=== PATIENT | male | born 1975 | race Caucasian/White ===

== ENCOUNTER 2020-10-18 09:45 | Inpatient (IN) | payer BC, SELFPAY ==
[2020-10-18] VITALS (9 sets, daily range): BP systolic 110–149; BP diastolic 68–96; PULSE 80–117; RESP 18–38; TEMP 37.1–39.2; O2SAT 2–97; BMI 31.0; BMI 30.8
--- NOTE | 2020-10-18 10:02 | EKG12_ITS ---
Test Reason : Blood Pressure : / mmHG Vent. Rate : 107 BPM Atrial Rate : 107 BPM P-R Int : 154 ms QRS Dur : 082 ms QT Int : 326 ms P-R-T Axes : 038 038 071 degrees QTc Int : 435 ms Sinus tachycardia Nonspecific T wave abnormality Abnormal ECG Confirmed by XOCHILT ARREDONDO, MARIBEL ([id number]), video editor BURTON ALBERTS ([id number]) on 10/19/2020 1:38:03 PM Referred By: Confirmed By:MARIBEL LEMON MD
--- NOTE | 2020-10-18 10:03 | CT_ITS ---
STUDY: CTA CHEST REASON FOR EXAM: Male, 45 years old. SOB,COUGH,FEVER,WEAKNESS,AND BODY ACHES. RADIATION DOSAGE (If Supplied By Facility): CTDIvol = ( 12.64 ) mGy, DLP = ( 553.86 ) mGycm TECHNIQUE: The examination was performed with the intravenous administration of IV 100mL Isovue-370. Post-processing of the angiographic images was performed, with multiplanar reformation and 3D reconstruction. Individualized dose optimization techniques were used for this CT. COMPARISON: None. FINDINGS: There is limited enhancement of the main pulmonary artery and right and left pulmonary arteries. There is limited enhancement of the bilateral peripheral pulmonary arteries. There is no demonstrated pulmonary embolism however, because the contrast bolus is not optimal, subtle filling defect could be present and overlooked, particularly in the distal vessels.. Normal thoracic aorta and visualized great vessels. There is no demonstrated aortic dissection. Sternal cerclage wires and vascular clips are present from a prior sternotomy and coronary artery bypass graft procedure (CABG). Normal mediastinum. Normal hilar regions. There is peribronchial thickening. Lungs are underexpanded There is interstitial and airspace opacifications predominantly in the inferior lung mora. This pattern of opacification can be seen with Covid pneumonia, but also with CHF for multifocal pneumonitis. Normal pleura. Normal chest wall structures. Normal osseous structures. Normal visualized upper abdomen. CT/CTA Chest W/WO Contrast IMPRESSION: No demonstrated PE, or thoracic aortic aneurysm or dissection. However, the contrast bolus within the pulmonary arteries is not optimal, and a subtle defect could be present and overlooked particularly in the distal vessels Interstitial and airspace opacifications predominantly in the inferior halves of both lung mora, differential as described above. Follow-up recommended to ensure resolution Chronic bronchitis Remote CABG Electronically Signed: Everett Echavarria MD at 11:55 EST , Service support ,
--- NOTE | 2020-10-18 10:25 | ED.DCSUM_ITS ---
History of Present Illness Chief Complaint: Shortness of Breath Informant: Patient Narrative: This is a 45-year-old male presenting with shortness of breath. Patient states that his had Covid and he developed symptoms approximately 10 days ago. He states it started off with a cough and then progressed to fever headache diarrhea. He states that he started to feel okay but then went for a walk outside which caused him shortness of breath that has yet to resolve. He has been according to the notes that his sent with him on hydroxychloroquine, prednisone, azithromycin, and beginning last night doxycycline. He is unsure of who was prescribing these medications. He is also been using a albuterol aerosol machine at home. notes that his pulse ox was into the 80s today. He states he has been eating and drinking okay. - Past Medical History (1) Benign hypertension Status: Chronic (2) Familial combined hyperlipidemia Status: Chronic Past Medical History - Allergies and Home Meds Allergies/Adverse Reactions: Allergies doxycycline Allergy (Verified 10/18/20 11:26) Vomiting Primary Care Physician: Hans Maynard MD [Primary Care Provider] - Surgical History: no surgical history Lives: Spouse/ Significant Other Smoking Status: Never smoker Drugs: None - Family History Maternal Family History: Reports: No pertinent history Review of Systems General: Reports: Chills, Fever, Malaise. Denies: Sweats Eyes: Denies: Visual changes - bilaterally, Diplopia ENT: Denies: Rhinorrhea, Sore throat Cardiovascular: Denies: Chest pain, Palpitations Respiratory: Reports: Dyspnea, Cough, Dyspnea on exertion Gastrointestinal: Reports: Diarrhea. Denies: Abdominal pain, Nausea, Vomiting, Melena, Hematochezia Genitourinary: Denies: Dysuria, Hematuria, Frequency Musculoskeletal: Reports: Myalgias. Denies: Back pain, Extremity Pain Skin: Denies: Rash, Wounds Neurological: Reports: Headache. Denies: Weakness, Numbness Physical Exam Vital Signs/Narrative: Vital Signs Temp Pulse Resp BP Pulse Ox 10/18/20 09:47 98.7 F 117 H 22 H 146/93 H 93 Inital Vital Signs reviewed: Yes General: Well nourished, Well developed, No Acute Distress Head: Normocephalic, Atraumatic Eyes: Perrl, EOMI ENT: Moist mucous membranes, No rhinorrhea Neck: Supple, Nontender Cardiovascular: Regular rate, No murmurs, Tachycardia Respiratory: CTA bilaterally, Chest nontender, - - Patient is tachypneic but not distress Abdomen: Soft, Nontender, Nondistended, Normal bowel sounds Back: Nontender, Normal Inspection Extremities: Nontender, No edema Skin: Normal color, No rash Neurological: Alert, Oriented x3, Cranial nerves II-XII grossly intact, Normal Strength, Normal Sensation Psychological: Normal affect, Normal Mood Diagnostic/Tx/Re-eval Clinical Impression(s) from Imaging Studies Chest CTA 10/18/20 10:03 IMPRESSION: No demonstrated PE, or thoracic aortic aneurysm or dissection. However, the contrast bolus within the pulmonary arteries is not optimal, and a subtle defect could be present and overlooked particularly in the distal vessels Interstitial and airspace opacifications predominantly in the inferior halves of both lung mora, differential as described above. Follow-up recommended to ensure resolution Chronic bronchitis Remote CABG Electronically Signed: Everett Echavarria MD at 11:55 EST , Service support , Laboratory Last Values WBC 11.0 K/mm3 (4.4-11.0) 10/18/20 10:20 RBC 4.60 M/mm3 (4.6-6.2) 10/18/20 10:20 Hgb 13.6 g/dL (13.0-16.5) 10/18/20 10:20 Hct 40.6 % (40-54) 10/18/20 10:20 MCV 88.3 fL (80-94) 10/18/20 10:20 MCH 29.6 pg (27.0-32.0) 10/18/20 10:20 MCHC 33.5 g/dL (32-36) 10/18/20 10:20 RDW Std Deviation 41.5 fl (35.1-43.9) 10/18/20 10:20 RDW Coeff of [place]a 12.7 % (11.6-14.6) 10/18/20 10:20 Plt Count 413 K/mm3 (150-450) 10/18/20 10:20 MPV 8.4 fl (6.2-12.0) 10/18/20 10:20 Immature Gran % (Auto) 2.400 % (0.0-0.9) H 10/18/20 10:20 Neut % (Auto) 77.3 % (47-70) H 10/18/20 10:20 Lymph % (Auto) 13.0 % (19-41) L 10/18/20 10:20 [place] % (Auto) 7.1 % (0-10) 10/18/20 10:20 Eos % (Auto) 0.0 % (0-5) 10/18/20 10:20 Baso % (Auto) 0.2 % (0-1) 10/18/20 10:20 Absolute Neuts (auto) 8.5 X10^3/uL (2.0-7.7) H 10/18/20 10:20 Absolute Lymphs (auto) 1.43 X10^3/uL (0.83-4.51) 10/18/20 10:20 Nucleated RBC % 0 % (0-5) 10/18/20 10:20 Fibrinogen 820 mg/dl (203-444) H 10/18/20 10:20 D-Dimer Quant (PE/DVT) 0.65 FEU/ug/m (0.27-0.49) H* 10/18/20 10:20 Sodium 132 mmol/L (136-145) L 10/18/20 10:20 Potassium 3.8 mmol/L (3.5-5.1) 10/18/20 10:20 Chloride 97 mmol/L (98-107) L 10/18/20 10:20 Carbon Dioxide 26.0 mmol/L (21.0-32.0) 10/18/20 10:20 Anion Gap 9 (5-15) 10/18/20 10:20 BUN 17 mg/dL (7-18) 10/18/20 10:20 Creatinine 1.12 mg/dL (0.70-1.30) 10/18/20 10:20 Estim Creat Clear Calc 85.04 ml/min 10/18/20 10:20 Est GFR (MDRD) Af Amer 92 mL/min (>60) 10/18/20 10:20 Est GFR (MDRD) Non-Af 76 mL/min (>60) 10/18/20 10:20 BUN/Creatinine Ratio 15.2 RATIO (10-20) 10/18/20 10:20 Glucose 139 mg/dL (74-106) H 10/18/20 10:20 Lactic Acid 2.1 mmol/L (0.4-1.9) H* 10/18/20 10:20 Calcium 8.9 mg/dL (8.5-10.1) 10/18/20 10:20 Total Bilirubin 0.40 mg/dL (0.20-1.00) 10/18/20 10:20 AST 33 U/L (15-37) 10/18/20 10:20 ALT 64 U/L (16-61) H 10/18/20 10:20 Alkaline Phosphatase 52 U/L (45-117) 10/18/20 10:20 Lactate Dehydrogenase 204 U/L (87-241) 10/18/20 10:20 Total Creatine Kinase 149 U/L (39-308) 10/18/20 10:20 Troponin I < 0.015 ng/mL (<0.045) 10/18/20 10:20 C-React Prot Ext Range 73.00 mg/L (0.0-3.0) H 10/18/20 10:20 B-Natriuretic Peptide 42.9 pg/mL (0-100) 10/18/20 10:20 Total Protein 8.3 g/dL (6.4-8.2) H 10/18/20 10:20 Albumin 3.3 g/dL (3.2-5.0) 10/18/20 10:20 Globulin 5.0 g/dL (2.2-4.2) H 10/18/20 10:20 Albumin/Globulin Ratio 0.7 RATIO (0.9-2.4) L 10/18/20 10:20 Procalcitonin 0.19 ng/mL (0.00-0.09) H 10/18/20 10:20 - EKG Initial EKG Interpretation: Sinus Tachycardia - KG demonstrates a sinus tachycardia at a rate of 107. - Medical Decision Making Received supplemental oxygen. His rapid Covid antigen test is negative. His white count is 11. This is most likely elevated due to the prednisone he has been on. Other organ systems appear to be doing well. CTA of his chest unfortunately was not fully diagnostic for pulmonary embolism. This showed multilobar pneumonitis. A formal Covid PCR was sent. He still remains tachypneic between 30 and 40 and tachycardic greater than 100. ED Disposition - Plan for ED Patient: Disposition: Acute Care Hospital [facility] Diagnosis: COVID-19, Sepsis, Hypoxemia Referrals: Hans Maynard MD [Primary Care Provider] -
[2020-10-18 10:36] LABS: Absolute Lymphocyte Count 1.43 X10^3/uL (0.83-4.51); Absolute Neutrophil Count 8.5 X10^3/uL (2.0-7.7); Basophil# 0.02 X10^3/uL; Basophil% 0.2 % (0-1); Hematocrit 40.6 % (40-54); Hemoglobin 13.6 g/dL (13.0-16.5); Lymphocyte # 1.43 X10^3/ul (4.0); Mean Corp Hgb Conc 33.5 g/dL (32-36); Mean Corpuscular Hgb 29.6 pg (27.0-32.0); Mean Corpuscular Volume 88.3 fL (80-94); Mean Platelet Vol. 8.4 fl (6.2-12.0); Monocyte# 0.78 X10^3/uL; Monocyte% 7.1 % (0-10); NRBC Flagged by Analyzer 0 % (0-5); Neutrophil # 8.53 X10^3/uL (2.7-7.7); Neutrophil % 77.3 % (47-70); Platelet Count 413 K/mm3 (150-450); RBC Distribution Width CV 12.7 % (11.6-14.6); RBC Distribution Width SD 41.5 fl (35.1-43.9)
[2020-10-18 10:57] LABS: Lactic Acid 2.1 mmol/L (0.4-1.9)
[2020-10-18 10:58] LABS: ALB/GLOB Ratio 0.7 RATIO (0.9-2.4); AST(SGOT) 33 U/L (15-37); Alanine Aminotransfer ALT/SGPT 64 U/L (16-61); Albumin, Serum 3.3 g/dL (3.2-5.0); Alkaline Phosphatase 52 U/L (45-117); Anion Gap 9 (5-15); BUN 17 mg/dL (7-18); BUN/Creat Ratio 15.2 RATIO (10-20); CPK Total, Creatine Kinase 149 U/L (39-308); Calcium,Total 8.9 mg/dL (8.5-10.1); Chloride 97 mmol/L (98-107); Creatinine, Serum 1.12 mg/dL (0.70-1.30); EST Glomerular Filtration Rate 76 mL/min (>60); Est Glom Filt Rate - Afr Amer 92 mL/min (>60); Estimated Creatinine Clearance 85.04 ml/min; Glucose 139 mg/dL (74-106); LDH 204 U/L (87-241); Potassium 3.8 mmol/L (3.5-5.1); Protein, Total 8.3 g/dL (6.4-8.2); Sodium Level 132 mmol/L (136-145)
[2020-10-18 11:11] LABS: BNP,B-Type NATRIURETIC PEPTIDE 42.9 pg/mL (0-100)
[2020-10-18 11:14] LABS: Fibrinogen 820 mg/dl (203-444)
[2020-10-18 11:15] LABS: D-Dimer Quantitative (DVT/PE) 0.65 FEU/ug/m (0.27-0.49)
[2020-10-18 11:41] LABS: Procalcitonin 0.19 ng/mL (0.00-0.09)
[2020-10-18] MEDS: 0.9% Normal Saline 1,000 ML 200 ML IV (13:03)
[2020-10-18] MEDS: Acetaminophen 500 MG Tablet 1000 MG PO (13:07)
[2020-10-18 14:28] LABS: Reflex Lactate? Y
--- NOTE | 2020-10-18 14:44 | HP.PCM_ITS ---
History of Present Illness Date of Admission: 10/18/20 Chief Complaint: Cough and shortness of breath The patient is a 45 year old M with PMH as below who presents to the hospital with progressive shortness of breath and cough. He states that his tested positive for Covid 2 weeks ago, and he started feeling symptomatic about 10 days ago with myalgias, cough, and a loss of taste. He states since then it is progressively getting worse and he has been getting hydroxychloroquine and then prednisone and then he was also prescribed azithromycin and doxycycline as an outpatient all of this for Covid by someone other than his PCP. He presented today because he had to go to the bar and check on a horse and became short of breath and this did not get any better when he got back in started to rest. In the ER he had a slightly elevated D-dimer 0.65 and a CTA was obtained which showed bilateral patchy infiltrates consistent with a viral pneumonia. He is afebrile without a leukocytosis, however he is leukopenic. BNP was normal and CRP was elevated at 73. His antigen tested negative however his PCR for Covid tested positive. Past Medical History Past Medical History (Chronic Problems): Chronic Problems Familial combined hyperlipidemia (Chronic) Benign hypertension (Chronic) Allergies doxycycline Allergy (Verified 10/18/20 11:26) Vomiting Home Medications: Ambulatory Orders Medication Instructions Recorded Aspirin [Aspirin, Baby] 162 mg PO DAILY@0800 11/23/14 Atorvastatin Calcium [Lipitor] 80 mg PO MOFR 11/23/14 Metoprolol Tartrate [Lopressor 12.5 mg PO BID 07/25/15 (Beta Monet)] Amlodipine [Norvasc] 5 mg PO DAILY 10/18/20 Clopidogrel Bisulfate [Clopidogrel] 75 mg PO DAILY 10/18/20 Evolocumab [Repatha Syringe] 140 mg SQ [id number] 10/18/20 Hydroxychloroquine [Plaquenil] 200 mg PO MO 10/18/20 Losartan Potassium [Cozaar] 50 mg PO DAILY 10/18/20 Surgical History: cholecystectomy, coronary bypass surgery, - - Cardiac stent x3 Lives: Spouse/ Significant Other Smoking Status: Never smoker Alcohol: None Drugs: None - *Family History Maternal History Items: Heart Disease Paternal History Items: Heart Disease Review of Systems Constitutional: Reports: Chills, Malaise. Denies: Fever, Weight Change HEENT: Denies: Head Aches, Sinus Congestion, Sinus Drainage Cardiovascular: Denies: Chest Pain, Palpitations Respiratory: Reports: Cough, Shortness of Breath. Denies: Shortness of breath at rest, Sputum production Gastrointestinal: Denies: Abdominal Pain, Nausea, Vomiting Genitourinary: Denies: Dysuria Musculoskeletal: Reports: Muscle pain. Denies: Joint Pain, Joint Tenderness Skin: Denies: Rash, Wounds Neurological: Denies: Numbness, Tingling, Focal weakness Psychiatric: Denies: Anxiety, Depression Hematologic/ Lymphatic: Denies: Easy Bruising, Easy Bleeding VTE Information - Inpt Only VTE Present on Admission: No Patient Problems: Active and Suspected Problems COVID-19 (Acute) Sepsis (Acute) Hypoxemia (Acute) - Physical Exam Vitals/I&O's: Vital Signs Temp Pulse Resp BP Pulse Ox 100.3 F H 101 H 25 H 133/91 H 95 10/18/20 13:04 10/18/20 13:04 10/18/20 13:04 10/18/20 13:04 10/18/20 13:04 Oxygen Flow Rate (L/min) 2 Oxygen Delivery Method Nasal Cannula Weight: 210 lb 5.136 oz Body Mass Index (BMI) 31.0 General: Alert, Oriented x3, Cooperative, No apparent distress HEENT: Atraumatic, PERRLA, EOMI, Normocephalic Oral: Moist Mucosa Neck: Supple, No JVD Lungs: Normal air movement, No rhonchi, No wheeze, No rales, Diminished Cardiovascular: Regular rate, Regular Rhythm, Normal S1, Normal S2, No murmurs Abdomen: Soft, Non Tender, Non-Distended, No Hepato-splenomegaly Extremities: No edema, Capillary Refill Less than 3 Seconds Skin: No rashes, No breakdown Neurological: Neuro grossly intact, Sensory exam intact to light touch and pain Psych/Mental Status: Normal Affect, Appropriate Microbiology Past 72 Hours 10/18/20 10:20 Mucosa - Nose SARS-CoV-2 Antigen (Rapid) - Final Laboratory Results 10/18/20 10:20: WBC 11.0, RBC 4.60, Hgb 13.6, Hct 40.6, MCV 88.3, MCH 29.6, MCHC 33.5, RDW Std Deviation 41.5, RDW Coeff of [place] 12.7, Plt Count 413, MPV 8.4, Immature Gran % (Auto) 2.400 H, Neut % (Auto) 77.3 H, Lymph % (Auto) 13.0 L, [place] % (Auto) 7.1, Eos % (Auto) 0.0, Baso % (Auto) 0.2, Absolute Neuts (auto) 8.5 H, Absolute Lymphs (auto) 1.43, Nucleated RBC % 0 10/18/20 10:20: Fibrinogen 820 H, D-Dimer Quant (PE/DVT) 0.65 H* 10/18/20 10:20: Sodium 132 L, Potassium 3.8, Chloride 97 L, Carbon Dioxide 26.0, Anion Gap 9, BUN 17, Creatinine 1.12, Estim Creat Clear Calc 85.04, Est GFR (MDRD) Af Amer 92, Est GFR (MDRD) Non-Af 76, BUN/Creatinine Ratio 15.2, Glucose 139 H, Calcium 8.9, Total Bilirubin 0.40, AST 33, ALT 64 H, Alkaline Phosphatase 52, Lactate Dehydrogenase 204, Total Creatine Kinase 149, Troponin I < 0.015, C-React Prot Ext Range 73.00 H, Total Protein 8.3 H, Albumin 3.3, Globulin 5.0 H , Albumin/Globulin Ratio 0.7 L 10/18/20 10:20: Lactic Acid 2.1 H* 10/18/20 10:20: B-Natriuretic Peptide 42.9 10/18/20 10:20: Procalcitonin 0.19 H 10/18/20 12:11: COVID-19 (ANGELA) Detected Current Medications Sodium Chloride () 1,000 mls @ 200 mls/hr IV .Q5H MICHAELA Last Admin: 10/18/20 13:03 Dose: 200 mls/hr Documented by: Assessment/Plan All Active Problems COVID-19 (Acute) Sepsis (Acute) Hypoxemia (Acute) 1. Acute hypoxic respiratory failure and sepsis secondary to COVID-19 pneumonia -Continue with Decadron and remdesivir. We will have him figure out how much prednisone he is taken and adjust his Decadron course for total 10 days of steroids -He tested at 86% on room air in the ER which is why he was placed on 2 L of oxygen and is currently satting in the mid 90s -No PE on CTA however his D-dimer is a little bit elevated the 0.65, will likely plan for discharge on Eliquis when stable -Will not continue Plaquenil on admission or on discharge -We will discontinue IV fluids on admission, patient with Covid tend to have significant adverse events related to overhydration, he is received about half a liter of normal saline in the ER. Will encourage p.o. intake 2. HTN/HLD/CAD status post CABG x4 and stent x3 -He does have a significant cardiac family history as well as a significant cardiac history with himself -We will continue with all of his home medications -Systolic blood pressures are stable -Continue with aspirin and Plavix DVT: Lovenox Inpatient E&M: 34114 Init Hosp L2
[2020-10-18 16:08] LABS: Lactic Acid 1.2 mmol/L (0.4-1.9)
[2020-10-18] MEDS: dexAMETHasone 4 MG Tablet 6 MG PO (16:21)
--- NOTE | 2020-10-18 16:25 | NT.THERAPY_ITS ---
Nutrition Therapy Report - History Nutrition Services has been consulted to:: Manage nutrient details of diet order Current diet / nutrition support order:: Cardiac diet - Anthropometric Measurements Height:: 5 ft 9 in Weight:: 94.7 kg Body Mass Index (BMI):: 30.8 - Relevant Labs Relevant Labs:: Immature Gran % (Auto) 2.400 % (0.0-0.9) H 10/18/20 10:20 Neut % (Auto) 77.3 % (47-70) H 10/18/20 10:20 Lymph % (Auto) 13.0 % (19-41) L 10/18/20 10:20 Absolute Neuts (auto) 8.5 X10^3/uL (2.0-7.7) H 10/18/20 10:20 Fibrinogen 820 mg/dl (203-444) H 10/18/20 10:20 D-Dimer Quant (PE/DVT) 0.65 FEU/ug/m (0.27-0.49) H* 10/18/20 10:20 Sodium 132 mmol/L (136-145) L 10/18/20 10:20 Chloride 97 mmol/L (98-107) L 10/18/20 10:20 Glucose 139 mg/dL (74-106) H 10/18/20 10:20 Lactic Acid 2.1 mmol/L (0.4-1.9) H* 10/18/20 10:20 ALT 64 U/L (16-61) H 10/18/20 10:20 C-React Prot Ext Range 73.00 mg/L (0.0-3.0) H 10/18/20 10:20 Total Protein 8.3 g/dL (6.4-8.2) H 10/18/20 10:20 Globulin 5.0 g/dL (2.2-4.2) H 10/18/20 10:20 Albumin/Globulin Ratio 0.7 RATIO (0.9-2.4) L 10/18/20 10:20 Procalcitonin 0.19 ng/mL (0.00-0.09) H 10/18/20 10:20 - Assessment Food / Nutrition-Related History:: Pt typically eats well but, has had diarrhea and jonathan/intake has been down since ill with covid x 10 days. Reports UBW~220 lbs; calculated ~5% wt loss x 10 days along with decreased intake is significant for malnutrition and pt agreeable to ensure w/ meals. - Nutrition Diagnosis Problem / Etiology / Signs & Symptoms (PES):: Pro/stacey malnutrition in the contex t of acute illness related to infection/inflammation as evidenced by 5% wt loss x past 10 days, suboptimal oral intake and inability to consume greater than 50% est nutrition needs x past 7-10 days. Evidence of Malnutrition Exists:: Yes Severe PCM:: Acute Illness - Nutrition Intervention Nutrition Prescription:: Estimated nutrition needs~4796-8140 kcal (25 kcal/Kg ABW) and ~95-105 gm protein (1-1.1 gm pro/Kg ABW) per day for repletion. - Food / Nutrient Delivery Interventions Summary of nutrition intervention:: Will continue cardiac diet as ordered; offer ensure enlive with meals as pt agreeable. Nutrition education provided?: Yes - discussed briefly importance of ONS to prevent further wt loss - MNT Monitoring Further MNT monitoring and evaluation required?: Yes MNT Follow-up in:: 3-5 days
[2020-10-18] MEDS: 0.9% Saline Lock 10 ML Syringe IV (18:58)
[2020-10-18] MEDS: Metoprolol Tartrate 25 MG Tablet 12.5 MG PO (19:55)
[2020-10-18] MEDS: Enoxaparin 30 MG/0.3 ML Syringe SC (19:57)
[2020-10-18] MEDS: Acetaminophen 325 MG Tablet 650 MG PO (20:04)
[2020-10-19 05:00] VITALS: BP 133/79; PULSE 80; RESP 17; TEMP 37.3; O2SAT 95
[2020-10-19] MEDS: Acetaminophen 325 MG Tablet 650 MG PO ×2 (05:57→14:31)
[2020-10-19 06:47] LABS: Absolute Lymphocyte Count 0.67 X10^3/uL (0.83-4.51); Absolute Neutrophil Count 7.3 X10^3/uL (2.0-7.7); Basophil# 0.04 X10^3/uL; Basophil% 0.5 % (0-1); Hematocrit 41.5 % (40-54); Hemoglobin 13.7 g/dL (13.0-16.5); Lymphocyte # 0.67 X10^3/ul (4.0); Lymphocyte % 7.9 % (19-41); Mean Corpuscular Hgb 29.5 pg (27.0-32.0); Mean Corpuscular Volume 89.4 fL (80-94); Mean Platelet Vol. 8.5 fl (6.2-12.0); Monocyte# 0.26 X10^3/uL; Monocyte% 3.1 % (0-10); NRBC Flagged by Analyzer 0 % (0-5); Neutrophil # 7.29 X10^3/uL (2.7-7.7); Neutrophil % 86.4 % (47-70); Platelet Count 465 K/mm3 (150-450); RBC Distribution Width CV 12.7 % (11.6-14.6); RBC Distribution Width SD 41.5 fl (35.1-43.9); Red Blood Count 4.64 M/mm3 (4.6-6.2); White Blood Count 8.4 K/mm3 (4.4-11.0)
[2020-10-19 07:21] LABS: ALB/GLOB Ratio 0.6 RATIO (0.9-2.4); AST(SGOT) 32 U/L (15-37); Alanine Aminotransfer ALT/SGPT 58 U/L (16-61); Alkaline Phosphatase 50 U/L (45-117); Anion Gap 6 (5-15); BUN 19 mg/dL (7-18); BUN/Creat Ratio 19.3 RATIO (10-20); Calcium,Total 9.3 mg/dL (8.5-10.1); Chloride 98 mmol/L (98-107); Creatinine, Serum 0.98 mg/dL (0.70-1.30); EST Glomerular Filtration Rate 88 mL/min (>60); Est Glom Filt Rate - Afr Amer 107 mL/min (>60); Estimated Creatinine Clearance 97.19 ml/min; Globulin 5.2 g/dL (2.2-4.2); Glucose 163 mg/dL (74-106); Potassium 4.4 mmol/L (3.5-5.1); Protein, Total 8.2 g/dL (6.4-8.2); Sodium Level 133 mmol/L (136-145)
--- NOTE | 2020-10-19 09:56 | PN_ITS ---
Patient Problems: Active and Suspected Problems COVID-19 (Acute) Sepsis (Acute) Hypoxemia (Acute) Subjective: Feeling much better today than he did yesterday. Maintaining his oxygen sats on his 2 L nasal cannula he took prednisone as an outpatient for about 6 days therefore will adjust his Decadron course accordingly Vitals/I&O's: Vital Signs Temp Pulse Resp BP Pulse Ox 99.1 F 80 17 133/79 H 95 10/19/20 05:00 10/19/20 05:00 10/19/20 05:00 10/19/20 05:00 10/19/20 05:00 Oxygen Flow Rate (L/min) 2 Oxygen Delivery Method Nasal Cannula Weight: 208 lb 12.444 oz Body Mass Index (BMI) 30.8 Intake and Output for Last 24 Hours 10/17/20 10/18/20 10/19/20 23:59 23:59 23:59 Intake Total 996.17 / 996.17 Output Total 300 / 300 Balance 696.17 / 696.17 General: Alert, Oriented x3, Cooperative, No apparent distress HEENT: Atraumatic, PERRLA, EOMI, Normocephalic Oral: Moist Mucosa Neck: Supple, No JVD Lungs: Normal air movement, No rhonchi, No wheeze, No rales, Diminished Cardiovascular: Regular rate, Regular Rhythm, Normal S1, Normal S2, No murmurs Abdomen: Soft, Non Tender, Non-Distended, No Hepato-splenomegaly Extremities: No edema, Capillary Refill Less than 3 Seconds Skin: No rashes, No breakdown Neurological: Neuro grossly intact, Sensory exam intact to light touch and pain Psych/Mental Status: Normal Affect, Appropriate Microbiology Past 72 Hours 10/18/20 16:15 Urine, Clean Catch Legionella Antigen - Final 10/18/20 16:15 Urine, Clean Catch Streptococcus pneumoniae Antigen (M - Final 10/18/20 12:11 Mucosa - Nose Respiratory Panel (PCR) - Final 10/18/20 10:20 Mucosa - Nose SARS-CoV-2 Antigen (Rapid) - Final Laboratory Results 10/18/20 10:20: WBC 11.0, RBC 4.60, Hgb 13.6, Hct 40.6, MCV 88.3, MCH 29.6, MCHC 33.5, RDW Std Deviation 41.5, RDW Coeff of Chela 12.7, Plt Count 413, MPV 8.4, Immature Gran % (Auto) 2.400 H, Neut % (Auto) 77.3 H, Lymph % (Auto) 13.0 L, [place] % (Auto) 7.1, Eos % (Auto) 0.0, Baso % (Auto) 0.2, Absolute Neuts (auto) 8.5 H, Absolute Lymphs (auto) 1.43, Nucleated RBC % 0 10/18/20 10:20: Fibrinogen 820 H, D-Dimer Quant (PE/DVT) 0.65 H* 10/18/20 10:20: Sodium 132 L, Potassium 3.8, Chloride 97 L, Carbon Dioxide 26.0, Anion Gap 9, BUN 17, Creatinine 1.12, Estim Creat Clear Calc 85.04, Est GFR (MDRD) Af Amer 92, Est GFR (MDRD) Non-Af 76, BUN/Creatinine Ratio 15.2, Glucose 139 H, Calcium 8.9, Total Bilirubin 0.40, AST 33, ALT 64 H, Alkaline Phosphatase 52, Lactate Dehydrogenase 204, Total Creatine Kinase 149, Troponin I < 0.015, C- React Prot Ext Range 73.00 H, Total Protein 8.3 H, Albumin 3.3, Globulin 5.0 H, Albumin/Globulin Ratio 0.7 L 10/18/20 10:20: Lactic Acid 2.1 H* 10/18/20 10:20: B-Natriuretic Peptide 42.9 10/18/20 10:20: Procalcitonin 0.19 H 10/18/20 12:11: COVID-19 (ANGELA) Detected 10/18/20 15:20: Lactic Acid 1.2 10/19/20 06:00: WBC 8.4, RBC 4.64, Hgb 13.7, Hct 41.5, MCV 89.4, MCH 29.5, MCHC 33.0, RDW Std Deviation 41.5, RDW Coeff of Chela 12.7, Plt Count 465 H, MPV 8.5, Immature Gran % (Auto) 2.100 H, Neut % (Auto) 86.4 H, Lymph % (Auto) 7.9 L, [place] % (Auto) 3.1, Eos % (Auto) 0.0, Baso % (Auto) 0.5, Absolute Neuts (auto) 7.3, Absolute Lymphs (auto) 0.67 L, Nucleated RBC % 0 10/19/20 06:00: Sodium 133 L, Potassium 4.4, Chloride 98, Carbon Dioxide 29.0, Anion Gap 6, BUN 19 H, Creatinine 0.98, Estim Creat Clear Calc 97.19, Est GFR (MDRD) Af Amer 107, Est GFR (MDRD) Non-Af 88, BUN/Creatinine Ratio 19.3, Glucose 163 H, Calcium 9.3, Total Bilirubin 0.50, AST 32, ALT 58, Alkaline Phosphatase 50, Total Protein 8.2, Albumin 3.0 L, Globulin 5.2 H, Albumin/Globulin Ratio 0.6 L Current Medications Acetaminophen (Acetaminophen 325 Mg Tablet) 650 mg PO Q6H PRN PRN PRN Reason: Pain Score 1-10/Temp > 100.7 F Last Admin: 10/19/20 05:57 Dose: 650 mg Documented by: Amlodipine Besylate (Amlodipine 5 Mg Tablet) 5 mg PO DAILY [facility] Aspirin (Aspirin 81 Mg Tab.Chew) 162 mg PO DAILY [facility] Atorvastatin Calcium (Atorvastatin Calcium 80 Mg Tablet) 80 mg PO MoFr@2200 [facility] Clopidogrel Bisulfate (Clopidogrel Bisulfate 75 Mg Tablet) 75 mg PO DAILY [facility] Dexamethasone (Dexamethasone 4 Mg Tablet) 6 mg PO DAILY [facility] Last Admin: 10/18/20 16:21 Dose: 6 mg Documented by: Enoxaparin Sodium (Enoxaparin 30 Mg/0.3 Ml Syringe) 30 mg SC BID [facility] Last Admin: 10/18/20 19:57 Dose: 30 mg Documented by: Remdesivir 100 mg/ Sodium (Chloride) 250 mls @ 125 mls/hr IV DAILY [facility] Stop: 10/22/20 11:59 Sodium Chloride () 250 mls @ 15 mls/hr IV .[id number] PRN PRN Reason: Additional IVPB Infusion Last Infusion: 10/18/20 18:58 Dose: 0 mls/hr Documented by: Losartan Potassium (Losartan Potassium 50 Mg Tablet) 50 mg PO DAILY [facility] Melatonin (Melatonin 3 Mg Tablet) 3 mg PO QHS PRN PRN PRN Reason: INSOMNIA Metoprolol Tartrate (Metoprolol Tartrate 25 Mg Tablet) 12.5 mg PO BID [facility] Last Admin: 10/18/20 19:55 Dose: 12.5 mg Documented by: Ondansetron HCl (Ondansetron 4 Mg/2 Ml Vial) 4 mg IV Q8H PRN PRN PRN Reason: NAUSEA/VOMITING Sodium Chloride (0.9% Saline Lock 10 Ml Syringe) 10 - 40 ml IV UD PRN PRN Reason: SALINE FLUSH Last Admin: 10/18/20 18:58 Dose: 10 ml Documented by: Medical Necessity - Tobacco Use Smoking Status: Never smoker Assessment/Plan All Active Problems COVID-19 (Acute) Sepsis (Acute) Hypoxemia (Acute) 1. Acute hypoxic respiratory failure and sepsis secondary to COVID-19 pneumonia -Continue with Decadron and remdesivir. We will have him figure out how much prednisone he is taken and adjust his Decadron course for total 10 days of steroids -He tested at 86% on room air in the ER which is why he was placed on 2 L of oxygen and is currently satting in the mid 90s -No PE on CTA however his D-dimer is a little bit elevated the 0.65, he is on both aspirin and Plavix as an outpatient and given how his D-dimer is minimally elevated we will likely just discharge him on his dual antiplatelets -Will not continue Plaquenil on admission or on discharge 2. HTN/HLD/CAD status post CABG x4 and stent x3 -He does have a significant cardiac family history as well as a significant cardiac history with himself -We will continue with all of his home medications -Systolic blood pressures are stable -Continue with aspirin and Plavix DVT: Lovenox Inpatient E&M: 24619 Subs Hosp L2
[2020-10-19] MEDS: dexAMETHasone 4 MG Tablet 6 MG PO (10:27)
[2020-10-19] MEDS: Losartan Potassium 50 MG Tablet PO (10:27)
[2020-10-19] MEDS: Clopidogrel Bisulfate 75 MG Tablet PO (10:27)
[2020-10-19 10:28] VITALS: PULSE 73
[2020-10-19] MEDS: Metoprolol Tartrate 25 MG Tablet 12.5 MG PO ×2 (10:28→20:29)
[2020-10-19] MEDS: amLODIPine 5 MG Tablet PO (10:28)
[2020-10-19] MEDS: 0.9% Saline Lock 10 ML Syringe IV (10:29)
[2020-10-19] MEDS: Enoxaparin 30 MG/0.3 ML Syringe SC ×2 (10:29→20:30)
[2020-10-19] MEDS: Aspirin 81 MG TAB.CHEW 162 MG PO (10:29)
[2020-10-19 10:36] VITALS: BP 139/85; PULSE 83; RESP 18; TEMP 36.9; O2SAT 94
--- NOTE | 2020-10-19 15:05 | CASEMGMT ---
RN CM POWDER NIPPER MAY placed call to pt's room for initial transition planning/care coordination assessment. CARLY OLVERA introduced self and role at [facility]. Pt voices understanding and consents to assessment at this time. Pt is A/O at this time and answers all questions appropriately. Care providers, pharmacy, and demographics verified/updated at this time. COVID-19 Positive. Testing done @ [facility]. Pt had COVID 2 weeks ago and is out of quarantine. or other family members able to get groceries/medication/supplies. 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 PCP: No PCP. Pt states would like a list of local PCP's. List given to RN who will give to pt. Pt made aware. Specialists:Dr Harvey Garces--cardiology [facility] Preferred Pharmacy: [facility] Retail Insurance: [employer] Prescription Benefit: Yes Living Will/HPOA: Has both LW and Healthcare POA, who is his , Anna LNOK: , Anna. Living Arrangements: Lives with his , Anna, and 2 kids. Independent. Transportation: Pt states drives self and states no transportation concerns at this time. will take him home @ d/c. DME: States has the following DME: Nebulizer, pulse oximeter If pt requires O2 @ d/c, he has no preference of DME co. RN given list of local DME companies to provide to pt. Pt made aware [employer] is affiliated w/[facility] and he is agreeable to [employer] [facility]. Pt wishes to return home and states has no concerns with going home at time of discharge. CM to follow for home oxygen needs and any further discharge planning/needs. Pt voices no further concerns/needs at this time. Advised pt to ask for CM if any further questions/concerns/needs arise. Voices understanding. PLAN: Home. Follow for any Home O2 needs @ d/c. Ratna LEON RN, CM
[2020-10-19 17:20] VITALS: BP 124/70; PULSE 87; RESP 18; TEMP 36.6; O2SAT 96
[2020-10-19 20:29] VITALS: PULSE 78
[2020-10-19 20:31] VITALS: BP 124/70; PULSE 77; RESP 18; TEMP 36.6; O2SAT 95
[2020-10-20] VITALS (8 sets, daily range): BP systolic 107–121; BP diastolic 66–74; PULSE 79–81; RESP 17–18; TEMP 36.6–37.1; O2SAT 91–94
[2020-10-20 05:39] LABS: Absolute Lymphocyte Count 1.28 X10^3/uL (0.83-4.51); Absolute Neutrophil Count 13.8 X10^3/uL (2.0-7.7); Basophil# 0.04 X10^3/uL; Basophil% 0.2 % (0-1); Hematocrit 41.3 % (40-54); Hemoglobin 13.3 g/dL (13.0-16.5); Lymphocyte # 1.28 X10^3/ul (4.0); Lymphocyte % 7.9 % (19-41); Mean Corp Hgb Conc 32.2 g/dL (32-36); Mean Corpuscular Hgb 30.2 pg (27.0-32.0); Mean Corpuscular Volume 93.7 fL (80-94); Mean Platelet Vol. 8.4 fl (6.2-12.0); Monocyte# 0.93 X10^3/uL; Monocyte% 5.7 % (0-10); NRBC Flagged by Analyzer 0 % (0-5); Neutrophil # 13.84 X10^3/uL (2.7-7.7); Platelet Count 473 K/mm3 (150-450); RBC Distribution Width CV 12.6 % (11.6-14.6); RBC Distribution Width SD 43.8 fl (35.1-43.9); Red Blood Count 4.41 M/mm3 (4.6-6.2); White Blood Count 16.3 K/mm3 (4.4-11.0)
[2020-10-20 06:27] LABS: ALB/GLOB Ratio 0.7 RATIO (0.9-2.4); AST(SGOT) 27 U/L (15-37); Alanine Aminotransfer ALT/SGPT 53 U/L (16-61); Albumin, Serum 2.9 g/dL (3.2-5.0); Alkaline Phosphatase 46 U/L (45-117); Anion Gap 11 (5-15); BUN 25 mg/dL (7-18); BUN/Creat Ratio 25.8 RATIO (10-20); Chloride 99 mmol/L (98-107); Creatinine, Serum 0.97 mg/dL (0.70-1.30); EST Glomerular Filtration Rate 90 mL/min (>60); Est Glom Filt Rate - Afr Amer 109 mL/min (>60); Estimated Creatinine Clearance 98.19 ml/min; Globulin 4.1 g/dL (2.2-4.2); Glucose 158 mg/dL (74-106); Potassium 4.5 mmol/L (3.5-5.1); Sodium Level 134 mmol/L (136-145)
--- NOTE | 2020-10-20 07:32 | PCM.PN.HOSP ---
Patient Problems: Active and Suspected Problems COVID-19 (Acute) Sepsis (Acute) Hypoxemia (Acute) Subjective: Doing well, no issues overnight. Oxygen requirement dropped to 1 L nasal cannula Vitals/I&O's: Vital Signs Temp Pulse Resp BP Pulse Ox 98.8 F 79 17 121/74 H 94 10/20/20 04:00 10/20/20 04:00 10/20/20 04:00 10/20/20 04:00 10/20/20 05:35 Oxygen Flow Rate (L/min) 1 Oxygen Delivery Method Nasal Cannula Weight: 208 lb 12.444 oz Body Mass Index (BMI) 30.8 Intake and Output for Last 24 Hours 10/18/20 10/19/20 10/20/20 23:59 23:59 23:59 Intake Total 996.17 / 996.17 670 / 670 Output Total 300 / 300 Balance 696.17 / 696.17 670 / 670 General: Alert, Oriented x3, Cooperative, No apparent distress HEENT: Atraumatic, PERRLA, EOMI, Normocephalic Oral: Moist Mucosa Neck: Supple, No JVD Lungs: Normal air movement, No rhonchi, No wheeze, No rales, Diminished Cardiovascular: Regular rate, Regular Rhythm, Normal S1, Normal S2, No murmurs Abdomen: Soft, Non Tender, Non-Distended, No Hepato-splenomegaly Extremities: No edema, Capillary Refill Less than 3 Seconds Skin: No rashes, No breakdown Neurological: Neuro grossly intact, Sensory exam intact to light touch and pain Psych/Mental Status: Normal Affect, Appropriate Microbiology Past 72 Hours 10/18/20 16:15 Urine, Clean Catch Legionella Antigen - Final 10/18/20 16:15 Urine, Clean Catch Streptococcus pneumoniae Antigen (M - Final 10/18/20 12:11 Mucosa - Nose Respiratory Panel (PCR) - Final 10/18/20 10:20 Mucosa - Nose SARS-CoV-2 Antigen (Rapid) - Final Laboratory Results 10/20/20 05:24: WBC 16.3 H, RBC 4.41 L, Hgb 13.3, Hct 41.3, MCV 93.7, MCH 30.2, MCHC 32.2, RDW Std Deviation 43.8, RDW Coeff of Chela 12.6, Plt Count 473 H, MPV 8.4, Immature Gran % (Auto) 1.200 H, Neut % (Auto) 85.0 H, Lymph % (Auto) 7.9 L, [place] % (Auto) 5.7, Eos % (Auto) 0.0, Baso % (Auto) 0.2, Absolute Neuts (auto) 13.8 H, Absolute Lymphs (auto) 1.28, Nucleated RBC % 0 10/20/20 05:24: Sodium 134 L, Potassium 4.5, Chloride 99, Carbon Dioxide 24.0, Anion Gap 11, BUN 25 H, Creatinine 0.97, Estim Creat Clear Calc 98.19, Est GFR (MDRD) Af Amer 109, Est GFR (MDRD) Non-Af 90, BUN/Creatinine Ratio 25.8 H, Glucose 158 H, Calcium 9.0, Total Bilirubin 0.30, AST 27, ALT 53, Alkaline Phosphatase 46, Total Protein 7.0, Albumin 2.9 L, Globulin 4.1, Albumin/Globulin Ratio 0.7 L Current Medications Acetaminophen (Acetaminophen 325 Mg Tablet) 650 mg PO Q6H PRN PRN PRN Reason: Pain Score 1-10/Temp > 100.7 F Last Admin: 10/19/20 14:31 Dose: 650 mg Documented by: Albuterol Sulfate (Albuterol Sulfate 8 Gm Inhaler (60 Puffs)) 2 puff INHALATION Q4H PRN PRN PRN Reason: cough,sob Amlodipine Besylate (Amlodipine 5 Mg Tablet) 5 mg PO DAILY [facility] Last Admin: 10/19/20 10:28 Dose: 5 mg Documented by: Aspirin (Aspirin 81 Mg Tab.Chew) 162 mg PO DAILY [facility] Last Admin: 10/19/20 10:29 Dose: 162 mg Documented by: Atorvastatin Calcium (Atorvastatin Calcium 80 Mg Tablet) 80 mg PO MoFr@2200 [facility] Clopidogrel Bisulfate (Clopidogrel Bisulfate 75 Mg Tablet) 75 mg PO DAILY [facility] Last Admin: 10/19/20 10:27 Dose: 75 mg Documented by: Dexamethasone (Dexamethasone 4 Mg Tablet) 6 mg PO DAILY [facility] Stop: 10/22/20 10:01 Last Admin: 10/19/20 10:27 Dose: 6 mg Documented by: Enoxaparin Sodium (Enoxaparin 30 Mg/0.3 Ml Syringe) 30 mg SC BID [facility] Last Admin: 10/19/20 20:30 Dose: 30 mg Documented by: Furosemide (Furosemide 20 Mg/2 Ml Vial) 20 mg IV X1 ONE Stop: 10/20/20 07:32 Remdesivir 100 mg/ Sodium (Chloride) 250 mls @ 125 mls/hr IV DAILY [facility] Stop: 10/22/20 11:59 Last Infusion: 10/19/20 12:30 Dose: Infused Documented by: Sodium Chloride () 250 mls @ 15 mls/hr IV .[id number] PRN PRN Reason: Additional IVPB Infusion Last Infusion: 10/18/20 18:58 Dose: 0 mls/hr Documented by: Losartan Potassium (Losartan Potassium 50 Mg Tablet) 50 mg PO DAILY [facility] Last Admin: 10/19/20 10:27 Dose: 50 mg Documented by: Melatonin (Melatonin 3 Mg Tablet) 3 mg PO QHS PRN PRN PRN Reason: INSOMNIA Metoprolol Tartrate (Metoprolol Tartrate 25 Mg Tablet) 12.5 mg PO BID [facility] Last Admin: 10/19/20 20:29 Dose: 12.5 mg Documented by: Ondansetron HCl (Ondansetron 4 Mg/2 Ml Vial) 4 mg IV Q8H PRN PRN PRN Reason: NAUSEA/VOMITING Sodium Chloride (0.9% Saline Lock 10 Ml Syringe) 10 - 40 ml IV UD PRN PRN Reason: SALINE FLUSH Last Admin: 10/19/20 10:29 Dose: 10 ml Documented by: STROKE Vital Signs/Narrative: Vital Signs Temp Pulse Resp BP Pulse Ox 10/20/20 05:35 94 10/20/20 04:00 98.8 F 79 17 121/74 H 94 Medical Necessity - Tobacco Use Smoking Status: Never smoker Assessment/Plan All Active Problems COVID-19 (Acute) Sepsis (Acute) Hypoxemia (Acute) 1. Acute hypoxic respiratory failure and sepsis secondary to COVID-19 pneumonia -Continue with Decadron and remdesivir. We will have him figure out how much prednisone he is taken and adjust his Decadron course for total 10 days of steroids -He tested at 86% on room air in the ER which is why he was placed on 2 L of oxygen and is currently satting in the mid 90s -No PE on CTA however his D-dimer is a little bit elevated the 0.65, he is on both aspirin and Plavix as an outpatient and given how his D-dimer is minimally elevated we will likely just discharge him on his dual antiplatelets -Will not continue Plaquenil on admission or on discharge 2. HTN/HLD/CAD status post CABG x4 and stent x3 -He does have a significant cardiac family history as well as a significant cardiac history with himself -We will continue with all of his home medications -Systolic blood pressures are stable -Continue with aspirin and Plavix -We will give him one-time dose of Lasix today, does not appear to have had a significant urine output in the last 24 hours DVT: Lovenox Inpatient E&M: [id number] Subs Hosp L2
[2020-10-20] MEDS: Furosemide 20 MG/2 ML VIAL IV (08:24)
[2020-10-20] MEDS: Enoxaparin 30 MG/0.3 ML Syringe SC (08:26)
[2020-10-20] MEDS: amLODIPine 5 MG Tablet PO (08:26)
[2020-10-20] MEDS: Clopidogrel Bisulfate 75 MG Tablet PO (08:27)
[2020-10-20] MEDS: Aspirin 81 MG TAB.CHEW 162 MG PO (08:27)
[2020-10-20] MEDS: dexAMETHasone 4 MG Tablet 6 MG PO (08:28)
[2020-10-20] MEDS: Metoprolol Tartrate 25 MG Tablet 12.5 MG PO (08:28)
[2020-10-20] MEDS: Losartan Potassium 50 MG Tablet PO (08:29)
[2020-10-20] MEDS: 0.9% Saline Lock 10 ML Syringe IV (08:30)
[2020-10-20] MEDS: Acetaminophen 325 MG Tablet 650 MG PO (09:44)
--- NOTE | 2020-10-20 11:42 | CHAPLAIN ---
Type of Pastoral Visit ___ Initial Visit ___ Follow-up Visit ___ On-call Visit ___ General Patient Visit ___ Spiritual Assessment ___ Family Conference ___ Bereavement ___ Rapid Response ___ Code Blue _x__ Other (describe below) Pastoral Care Referral From ___ Patient ___ Family ___ Nurse ___ Physician ___ International Guest Coordinator ___ Loading Dock Helper _x__ Other (describe below) Sacrament/Intervention _x__ Active listening ___ Anointing ___ Faith ___ Bereavement ___ Communion ___ Poornima exploration ___ ___ Life review ___ Prayer ___ Reconciliation ___ Sacrament of Sick ___ Supportive presence ___ Wedding ___ Other (describe below) Pastoral Comments phone call into isolation room; patient answers the phone and reports that he is doing better and expects to be discharged today; pt states he has no other concerns but is thankful for the offer of support
--- NOTE | 2020-10-20 13:58 | PCM.DC ---
- Discharge Diagnoses Current Active Problems: Current Active and Chronic Problems COVID-19 (Acute) Sepsis (Acute) Hypoxemia (Acute) Familial combined hyperlipidemia (Chronic) Benign hypertension (Chronic) You will use the following diet at home:: Cardiac Your food should be the consistency of: Regular Your liquids should be the consistency of: Regular/Thin Discharge Activity: Return to Normal Activity Call your doctor if you observe: Fever of 101 or Higher, Shortness of breath, Dizziness, Fainting spells, Swelling in the ankles, Chest pain, Increased palpitations (irregular heartbeat) Instructions: Coronavirus Disease 2019 (COVID-19): Overview, Coronavirus Disease 2019 (COVID-19): Caring for Yourself or Others Allergies/Adverse Reactions: Allergies doxycycline Allergy (Verified 10/18/20 11:26) Vomiting Medications to take at Discharge Aspirin [Aspirin, Baby] 162 mg PO DAILY@0800 11/23/14 Atorvastatin Calcium [Lipitor] 80 mg PO MOFR 11/23/14 Metoprolol Tartrate [Lopressor (beta chas)] 12.5 mg PO BID 07/25/15 Amlodipine [Norvasc] 5 mg PO DAILY 10/18/20 Clopidogrel Bisulfate [Clopidogrel] 75 mg PO DAILY 10/18/20 Evolocumab [Repatha Syringe] 140 mg SQ .[id number] 10/18/20 Losartan Potassium [Cozaar] 50 mg PO DAILY 10/18/20 Dexamethasone [Decadron] 6 mg PO DAILY #6 tab 10/20/20 The following prescriptions were given: Dexamethasone [Decadron] 6 mg PO DAILY #6 tab Transmission Status: Pending to [facility] Primary Care Physician: Hans Maynard MD [NON-STAFF] - Please follow up with your Primary Care Physician in: 3-5 days Test Results: Test results from this visit will be discussed in further detail at your follow-up appointment, if applicable.
--- NOTE | 2020-10-20 15:10 | DS.PCM_ITS ---
Discharge Date and Diagnosis - Problem List Patient Problems: Active and Suspected Problems COVID-19 (Acute) Sepsis (Acute) Hypoxemia (Acute) Date of Admission: 10/18/20 Date of Discharge: 10/20/20 - Primary Discharge Diagnosis Acute Problems: Active Problems COVID-19 (Acute) Sepsis (Acute) Hypoxemia (Acute) - Secondary Discharge Diagnosis Chronic Problems: Chronic Problems Familial combined hyperlipidemia (Chronic) Benign hypertension (Chronic) Hospital Course and Treatment Imaging Results: Clinical Impression(s) from Imaging Studies Chest CTA 10/18/20 10:03 IMPRESSION: No demonstrated PE, or thoracic aortic aneurysm or dissection. However, the contrast bolus within the pulmonary arteries is not optimal, and a subtle defect could be present and overlooked particularly in the distal vessels Interstitial and airspace opacifications predominantly in the inferior halves of both lung mora, differential as described above. Follow-up recommended to ensure resolution Chronic bronchitis Remote CABG Electronically Signed: Everett Echavarria MD at 11:55 EST , Service support , Operations: None Procedures: None Summary of Care Provided: Per HPI: The patient is a 45 year old M with PMH as below who presents to the hospital with progressive shortness of breath and cough. He states that his tested positive for Covid 2 weeks ago, and he started feeling symptomatic about 10 days ago with myalgias, cough, and a loss of taste. He states since then it is progressively getting worse and he has been getting hydroxychloroquine and then prednisone and then he was also prescribed azithromycin and doxycycline as an outpatient all of this for Covid by someone other than his PCP. He presented today because he had to go to the bar and check on a horse and became short of breath and this did not get any better when he got back in started to rest. In the ER he had a slightly elevated D-dimer 0.65 and a CTA was obtained which showed bilateral patchy infiltrates consistent with a viral pneumonia. He is afebrile without a leukocytosis, however he is leukopenic. BNP was normal and CRP was elevated at 73. His antigen tested negative however his PCR for Covid tested positive. Hospital Course: 1. Acute hypoxic respiratory failure and sepsis secondary to COVID-19 [id number]-old male with extensive cardiac history presents to the hospital with shortness of breath and hypoxia. He was 86% on room air when he arrived to the ER and was placed on 2 L nasal cannula. He was heart on incentive spirometer as well as Decadron and remdesivir. He has improved very quickly and today had an ambulatory pulse ox where his oxygen level never went below 91% on room air. I discussed with him the options of either going home or staying 1 more day to to make sure that he remains off of room air and also receiving his fourth of 5 doses of remdesivir, however after discussions with his he has elected to go home. I discussed with him the plan for discharge and he expressed understanding of the risk and benefits of going home and would still like to go home. His D-dimer was elevated however he did have PEs on his CTA and because of his cardiac history he is already on aspirin and Plavix therefore I have elected to continue those 2 antiplatelets instead of discontinuing 1 and adding an anticoagulant. And I felt like anticoagulant in the setting of these 2 antiplatelets would put him at too high of a risk for bleeding. I also have encouraged that he do the incentive spirometer aggressively for the next 2 weeks. 2. Hypertension, hyperlipidemia, coronary artery disease status post CABG x4 and stent x3 chronic medical conditions which complicate his care. His home medications were continued where appropriate Patient Problems: Active and Suspected Problems COVID-19 (Acute) Sepsis (Acute) Hypoxemia (Acute) - Physical Exam Vitals/I&O's: Vital Signs Temp Pulse Resp BP Pulse Ox 97.9 F 79 18 107/66 92 10/20/20 13:59 10/20/20 13:59 10/20/20 13:59 10/20/20 13:59 10/20/20 13:59 Oxygen Flow Rate (L/min) 1 Oxygen Delivery Method Room Air Weight: 208 lb 12.444 oz Body Mass Index (BMI) 30.8 Intake and Output for Last 24 Hours 10/18/20 10/19/20 10/20/20 23:59 23:59 23:59 Intake Total 996.17 / 996.17 670 / 670 250 / 250 Output Total 300 / 300 Balance 696.17 / 696.17 670 / 670 250 / 250 Microbiology Past 72 Hours 10/18/20 10:44 Blood Culture (Wb) - Anticubital Left Blood Culture - Preliminary No growth in 48 hours. 10/18/20 10:20 Blood Culture (Wb) - Anticubital Right Blood Culture - Preliminary No growth in 48 hours. 10/18/20 16:15 Urine, Clean Catch Legionella Antigen - Final 10/18/20 16:15 Urine, Clean Catch Streptococcus pneumoniae Antigen (M - Final 10/18/20 12:11 Mucosa - Nose Respiratory Panel (PCR) - Final 10/18/20 10:20 Mucosa - Nose SARS-CoV-2 Antigen (Rapid) - Final Laboratory Results 10/20/20 05:24: WBC 16.3 H, RBC 4.41 L, Hgb 13.3, Hct 41.3, MCV 93.7, MCH 30.2, MCHC 32.2, RDW Std Deviation 43.8, RDW Coeff of Chela 12.6, Plt Count 473 H, MPV 8.4, Immature Gran % (Auto) 1.200 H, Neut % (Auto) 85.0 H, Lymph % (Auto) 7.9 L, [place] % (Auto) 5.7, Eos % (Auto) 0.0, Baso % (Auto) 0.2, Absolute Neuts (auto) 13.8 H, Absolute Lymphs (auto) 1.28, Nucleated RBC % 0 10/20/20 05:24: Sodium 134 L, Potassium 4.5, Chloride 99, Carbon Dioxide 24.0, Anion Gap 11, BUN 25 H, Creatinine 0.97, Estim Creat Clear Calc 98.19, Est GFR (MDRD) Af Amer 109, Est GFR (MDRD) Non-Af 90, BUN/Creatinine Ratio 25.8 H, Glucose 158 H, Calcium 9.0, Total Bilirubin 0.30, AST 27, ALT 53, Alkaline Phosphatase 46, Total Protein 7.0, Albumin 2.9 L, Globulin 4.1, Albumin/Globulin Ratio 0.7 L Current Medications Acetaminophen (Acetaminophen 325 Mg Tablet) 650 mg PO Q6H PRN PRN PRN Reason: Pain Score 1-10/Temp > 100.7 F Last Admin: 10/20/20 09:44 Dose: 650 mg Documented by: Albuterol Sulfate (Albuterol Sulfate 8 Gm Inhaler (60 Puffs)) 2 puff INHALATION Q4H PRN PRN PRN Reason: cough,sob Amlodipine Besylate (Amlodipine 5 Mg Tablet) 5 mg PO DAILY [facility] Last Admin: 10/20/20 08:26 Dose: 5 mg Documented by: Aspirin (Aspirin 81 Mg Tab.Chew) 162 mg PO DAILY [facility] Last Admin: 10/20/20 08:27 Dose: 162 mg Documented by: Atorvastatin Calcium (Atorvastatin Calcium 80 Mg Tablet) 80 mg PO MoFr@2200 [facility] Clopidogrel Bisulfate (Clopidogrel Bisulfate 75 Mg Tablet) 75 mg PO DAILY [facility] Last Admin: 10/20/20 08:27 Dose: 75 mg Documented by: Dexamethasone (Dexamethasone 4 Mg Tablet) 6 mg PO DAILY [facility] Stop: 10/22/20 10:01 Last Admin: 10/20/20 08:28 Dose: 6 mg Documented by: Enoxaparin Sodium (Enoxaparin 30 Mg/0.3 Ml Syringe) 30 mg SC BID [facility] Last Admin: 10/20/20 08:26 Dose: 30 mg Documented by: Remdesivir 100 mg/ Sodium (Chloride) 250 mls @ 125 mls/hr IV DAILY [facility] Stop: 10/22/20 11:59 Last Infusion: 10/20/20 12:27 Dose: Infused Documented by: Sodium Chloride () 250 mls @ 15 mls/hr IV .[id number] PRN PRN Reason: Additional IVPB Infusion Last Infusion: 10/18/20 18:58 Dose: 0 mls/hr Documented by: Losartan Potassium (Losartan Potassium 50 Mg Tablet) 50 mg PO DAILY [facility] Last Admin: 10/20/20 08:29 Dose: 50 mg Documented by: Melatonin (Melatonin 3 Mg Tablet) 3 mg PO QHS PRN PRN PRN Reason: INSOMNIA Metoprolol Tartrate (Metoprolol Tartrate 25 Mg Tablet) 12.5 mg PO BID [facility] Last Admin: 10/20/20 08:28 Dose: 12.5 mg Documented by: Ondansetron HCl (Ondansetron 4 Mg/2 Ml Vial) 4 mg IV Q8H PRN PRN PRN Reason: NAUSEA/VOMITING Sodium Chloride (0.9% Saline Lock 10 Ml Syringe) 10 - 40 ml IV UD PRN PRN Reason: SALINE FLUSH Last Admin: 10/20/20 08:30 Dose: 10 ml Documented by: Discharge Activity: Return to Normal Activity Call your doctor if you observe: Fever of 101 or Higher, Shortness of breath, Dizziness, Fainting spells, Swelling in the ankles, Chest pain, Increased palpitations (irregular heartbeat) Home Medications: Medications to take at Discharge Aspirin [Aspirin, Baby] 162 mg PO DAILY@0800 11/23/14 Atorvastatin Calcium [Lipitor] 80 mg PO MOFR 11/23/14 Metoprolol Tartrate [Lopressor (beta chas)] 12.5 mg PO BID 07/25/15 Amlodipine [Norvasc] 5 mg PO DAILY 10/18/20 Clopidogrel Bisulfate [Clopidogrel] 75 mg PO DAILY 10/18/20 Evolocumab [Repatha Syringe] 140 mg SQ [id number] 10/18/20 Losartan Potassium [Cozaar] 50 mg PO DAILY 10/18/20 Dexamethasone [Decadron] 6 mg PO DAILY #6 tab 10/20/20 Following Prescriptions Were Given to Patient: Dexamethasone [Decadron] 6 mg PO DAILY #6 tab Transmission Status: Received by [facility] Primary Care Physician: Hans Maynard MD [NON-STAFF] - Please follow up with your Primary Care Physician in: 3-5 days Patient Instructions: Coronavirus Disease 2019 (COVID-19): Overview, Coronavirus Disease 2019 (COVID-19): Caring for Yourself or Others Disposition: Home Minutes spent on discharge:: 35 Patient Condition:: Stable Medical Necessity - Tobacco Use Smoking Status: Never smoker Meaningful Use Info Meaningful Use Diagnoses (Choose all that apply): None applicable Inpatient E&M: 89427 Disch Hosp
--- NOTE | 2020-10-21 15:22 | CASEMGMT ---
CARLY OLVERA Discharge Follow-up Phone Call: EMANUEL: Tania Strata:1 Call Date:10/21/20 Discharge Date: 10/20/20 Time of Call: 1524 Duration: 5 Admitting Diagnosis: COVID CARLY OLVERA competed follow-up phone call after recent hospitalization. answered for patient per his request. states that patient is doing well. No questions or concerns regarding discharge instructions. Patient was christina to fill prescriptions without any issues. Follow-up appt scheduled with PCP. had no further questions or concerns at this time.
== END 2020-10-20 15:15 | disposition home or self-care (01) | DRG 871 ==
LOC: ED 12:30 → MS2 13:19
PROVIDERS: Admitting Provider Family Medicine; Emergency Provider Emergency Medicine; Visit Provider Family Medicine
DX: A41.89 Other specified sepsis (principal); U07.1 COVID-19; J96.01 Acute respiratory failure with hypoxia; J12.82 Pneumonia due to coronavirus disease 2019; I26.99 Other pulmonary embolism without acute cor pulmonale; E78.49 Other hyperlipidemia; I10 Essential (primary) hypertension; I25.10 Atherosclerotic heart disease of native coronary artery without angina pectoris; Z95.1 Presence of aortocoronary bypass graft; D72.819 Decreased white blood cell count, unspecified; Z79.899 Other long term (current) drug therapy; Z79.52 Long term (current) use of systemic steroids; Z79.82 Long term (current) use of aspirin
CPT/HCPCS: 36415; 71275; 80053; 82550; 83605; 83615; 83880; 84145; 84484; 85025; 85379; 85384; 86140; 87040; 87426; 87449; 87633; 87635; 93005; 97802; 99285; J7030; J7050; Q9967; A4216; J1940; U0002

== ENCOUNTER → 2023-11-28 | Outpatient (CLI) | payer BC, SELFPAY ==
[2023-11-28 19:35] LABS: Prolactin 4.8 ng/mL; Thyroid Stim Hormone (TSH) 1.32 uIU/mL (0.358-3.74)
--- OUTSIDE RECORDS SUMMARY | 2023-11-28 21:46 | XMS RPT_ITS | CCD ---
Author Name Unknown Address [address] [place] [address] Organization [facility] Care Team Providers Care Manager Administrative Name Role Phone JENNY KIDD Admitting Unavailable MARTIJENNY YOUNG Attending Unavailable JENNY KIDD Primary Care Unavailable Unavailable Primary Care Provider Unavailtodd e Unavailable Primary Care Provider Unavailtodd e Unavailable Primary Care Provider UnavailGIFTY Thomas Attending Unavailabl ADWOA Wheeler Referring Unavailable Allergies Allergy Classification Reported Allergen(s) Allergy Type Date of Onset Reaction(s) Facility (11 sources) Lisinopril; Translations: [LISINOPRIL] Drug Allergy 12-03-2013 [facility] Medications Completed/Discontinued Medications Medication Drug Class(es) Dates Sig (Normalized) Sig (Original) amLODIPine 5 mg oral tablet (12 sources) Dihydropyridine Calcium Channel [facility] Start: 03-08-2021 End: 04-24-2023 take 1 tablet by mouth once daily amLODIPine (NORVASC) 5 mg tablet Take 1 tablet by mouth once daily. 90 tablet 3 04/25/2023 Active Problems Active Problems Problem Classification Problem Date Documented Da te Episodic/Chronic Coronary atherosclerosis and other heart disease (13 sources) Coronary atherosclerosis; Translations: [Atherosclerotic heart disease of barrow coronary artery without angina pectoris] Onset: 05-01-2013 06-22-2016 Chronic Coronary atherosclerosis and other heart disease (1 source) Past history of procedure; Translations: [Coronary angioplasty status] Episodic Disorders of lipid metabolism (20 sources) Hyperlipidemia; Translations: [Hyperlipidemia, unspecified] Onset: 01-04-2010 06-22-2016 Chronic Immunizations and screening for infectious disease (3 sources) Contact with and (suspected) exposure to other viral communicable diseases; Translations: [Contact with and (suspected) exposure to other viral communicable diseases] Onset: 06-27-2020 Episodic Other nutritional; endocrine; and metabolic disorders (3 sources) Disorder of lipid metabolism; Translations: [Disorder of lipoprotein metabolism, unspecified] Chronic Past or Other Problems Problem Classification Problem Date Documented Da te Episodic/Chronic Residual codes; unclassified (11 sources) FH: premature coronary heart disease; Translations: [Family history of ischemic heart disease and other diseases of the circulatory system] Onset: 06-22-2016 06-22-2016 Episodic Results Test Name Value Interpretation Reference Range Facil ity Vital Signs Date Time Vital Sign Value Performing Clinician Anaya butcher 08-03-2022 09:26-0500 Body height 175.3 cm Adwoa Scherer APRN.VOL[employer]TEER [employer] Work Phone: [facility] 08-03-2022 09:26-0500 Body weight 98.52 kg Adwoa Scherer APRN.VOLUNTEER [employer] Work Phone: [facility] 08-03-2022 09:26-0500 Diastolic blood pressure 78 mm[Hg] Adwoa Scherer APRN.VOLUNTEER [employer] Work Phone: [facility] 08-03-2022 09:26-0500 Heart rate 84 /min Adwoa Scherer APRN.VOLUNTEER [employer] Work Phone: [facility] 08-03-2022 09:26-0500 SaO2% (BldA) [Mass fraction] 97 % Adwoa Scherer APRN.VOLUNTEER [employer] Work Phone: [facility] 08-03-2022 09:26-0500 Systolic blood pressure 120 mm[Hg] Adwoa Scherer APRN.VOLUNTEER [employer]HTER Work Phone: [facility] 01-08-2022 08:34-0400 Body height 175.3 cm Gifty Ortiz Work Phone: [facility] 01-08-2022 08:34-0400 Body weight 100.38 kg Gifty Ortiz Work Phone: [facility] 01-08-2022 08:34-0400 Diastolic blood pressure 78 mm[Hg] Gifty Washington DO Work Phone: [facility] 01-08-2022 08:34-0400 Heart rate 62 /min Gifty Gruber O Work Phone: [facility] 01-08-2022 08:34-0400 SaO2% (BldA) [Mass fraction] 96 % Gifty Washington DO Work Phone: [facility] 01-08-2022 08:34-0400 Systolic blood pressure 126 mm[Hg] Gifty Washington DO Work Phone: [facility] Encounters Encounter Date Encounter Type Care Provider Facility Start: 09-06-2023 End: 09-06-2023 ambulatory GIFTY WASHINGTON Facility:[facility] Start: 08-28-2023 Telephone encounter Gifty Kym Dez GRIMM Work Phone: Cardiology Procedures Date Procedure Procedure Detail Performing Clinician Start: 08-01-2022 Lipid 1996 panel - Serum or Plasma Gifty Washington DO Work Phone: Start: 05-22-2016 History of placement of stent for coronary artery disease S/P drug eluting coronary stent placement Gifty Jordanpiper DO Work Phone: Start: 06-12-2013 History of coronary artery bypass grafting Postsurgical aortocoronary bypass status Gifty Washington DO Work Phone: History of coronary artery bypass grafting Hx of CABG Gifty Kym Dez DO Work Phone: History of coronary artery bypass grafting Hx of CABG Adwoa Scherer COMMISSARY CLERK.VOLUNTEER FI[employer]HTER Work Phone: History of placement of stent for coronary artery disease S/P drug eluting coronary stent placement Gifty Washington DO Work Phone: History of placement of stent for coronary artery disease S/P drug eluting coronary stent placement Adwoa Scherer COMMISSARY CLERK.VOLUNTEER FI[employer] FIGHTER Work Phone: Plan of Treatment Date Care Activity Detail Author Start: 08-01-2027 Lipid 1996 panel - Serum or Plasma Lipid Screening [facility] Start: 08-01-2027 Lipid panel Lipid Screening [facility] Start: 08-01-2027 LIPID SCREEN LIPID SCREEN [facility] Start: 01-04-2027 LIPID SCREEN LIPID SCREEN [facility] Start: 07-28-2026 LIPID SCREEN LIPID SCREEN [facility] Start: 08-01-2025 DIABETES SCREEN DIABETES SCREEN [facility] Start: 08-01-2025 Diabetes Screening Diabetes Screening [facility] Start: 01-04-2025 DIABETES SCREEN DIABETES SCREEN [facility] Start: 08-01-2023 Hepatitis B surface antibody level LDL CHOLESTEROL [facility] Start: 05-17-2023 Influenza vaccination [facility] Start: 01-04-2023 Hepatitis B surface antibody level LDL CHOLESTEROL [facility] Start: 01-01-2023 End: 08-02-2023 Comprehensive metabolic 2000 panel - Serum or Plasma COMP METABOLIC PANEL Lab Routine Coronary artery disease involving barrow coronary artery of barrow heart without angina pectoris Lipid disorder Familial hypercholesterolemia Expected: 01/01/2023, Expires: 08/02/2023 [facility] Work Phone: Immunizations Immunization Date Immunization Notes Care Provider Kwaku biggs 08-16-2011 Tetanus, Diphtheria And Polio (Tdp) Gifty Washington DO Work Phone: [facility] Payers Date Payer Category Payer Unknown [id number] 2020 Unknown ADI WING PPO [id number] 2020-Present [phone] [address] [place] [address] PPO [id number] 2020 Unknown ADI BHARDWAJ ACCE PPO [id number] 2020-Present [phone] [address] [place] [address] PPO [id number] 1975 Unknown [id number] Social History Date Type Detail Facility Start: 07-20-2016 End: 08-03-2022 Tobacco smoking status NHIS Never smoked tobacco [facility] Start: 07-20-2016 End: 08-03-2022 Tobacco use and exposure Smokeless tobacco non-user [facility] Start: 01-06-2021 End: 08-03-2022 Alcohol intake Current drinker of alcohol (finding) [facility] Start: 01-06-2021 End: 10-08-2022 Alcohol intake [facility] Start: 1975 Sex Assigned At Male C [facility] End: 09-16-1992 History of tobacco use Cigarette Smoker [facility] Start: 08-03-2022 End: 10-08-2022 Tobacco use panel [facility] National Score (1-10 0), lower number is lower risk 49 [facility] Start: 10-27-2020 Gender identity Identifies as male gender (finding) [facility] Start: 10-27-2020 Sexual orientation Heterosexual (vamshi judge) [facility] Medical Equipment Procedure Code Equipment Code Equipment Origin al Text Equipment Identifier Dates Eunice Ptfe 1.2 Cm X 10 Cm - [id number] Start: 05-04-2013 Clinical Notes 05-06-2013 to 09-06-2023 Telephone Encounter - Kerri Coleman RN - 08/28/2023 11:18 AM ESTTelephone Encounter - Carole Franklin - 08/28/2023 9:44 AM ESTTelephone Encounter - Alek Frye RN - 07/26/2023 11:21 AM EST Note Date & Type Note Facility 09-06-2023 Note HNO ID: [id number] Author: Gifty Washington, DO Service: ? Author Type: Physician Type: Progress Notes Filed: 09/06/2023 9:24 AM Note Text: [facility] [place] [facility]unes Department of Cardiovascular Medicine SECTION OF REGIONAL CARDIOLOGY 09/06/23 [place]: 01/08/22 HPI: Hamzah Tanner is a 48 year old male who is here today for follow up. He has CAD and is s/p CABGx4 2012, PCI LM, Cx 2015. He has been doing well since we last saw him. He did have trouble getting his Repatha due to the company changing protocol or carrying this however he is back on track. He takes this and also takes rosuvastatin 3 days a week. The patient is involved in sporadic irregular exercise Patient denies SOB, chest pain, dizziness, lightheadedness, palpitations, lower extremity edema, PND, orthopnea, presyncope, syncope or claudication symptoms. Prior history: 01/06/2021: He has had trouble with lipids and stopped statin because it makes him forgetful so he stopped taking it. His LDL remained elevated at 83. He also misses meds occasionally. We increased Losartan to 25 mg daily for hypertension and added Crestor 5 mg once in a while with PCSK9i and recent recheck of lipids in 06/08/20 showing LDL 100. 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 REPAIR INGUINAL HERNIA FAMILY HISTORY Problem Relation Age of Onset No Known Problems Mother Stroke Father Ischemic Heart Disease Father MO, CABG age 67 other (carotid stenosis) Father Ischemic Heart Disease Brother 2 borthers had MO's, one had CABG age 38, other of MO age 40 SOCIAL HISTORY Social History Tobacco Use Smoking status: Never Smokeless tobacco: Never Substance Use Topics Alcohol use: Yes Alcohol/week: 3.0 standard drinks of alcohol Types: 3 Cans of Beer (12oz) per week Drug use: No Comment: 3 /week - but not always ALLERGIES: Lisinopril CURRENT MEDICATIONS: Current Outpatient Medications Medication Sig amLODIPine (NORVASC) 5 mg tablet Take 1 tablet by mouth once daily. clopidogrel (PLAVIX) 75 mg tablet Take 1 tablet by mouth once daily. losartan (COZAAR) 50 mg tablet Take 1 tablet by mouth once daily. metoprolol tartrate, short acting, (LOPRESSOR) 25 mg tablet TAKE 1/2 (ONE-HALF) OF A TABLET TWICE DAILY rosuvastatin (CRESTOR) 5 mg tablet Take 1 tablet by mouth three times a week. nitroglycerin sublingual (NITROQUICK) 0.4 mg SL tablet Dissolve 1 tablet under the tongue every 5 minutes as needed. FOR CHEST PAIN. IF NO RELIEF CALL 911 coenzyme Q-10 double strength 100 mg/5 ml Take 5 mL by mouth once daily. aspirin 81 mg chewable tablet Take 1 tablet by mouth once daily. evolocumab (REPATHA SURECLICK) 140 mg/mL pen injector Inject 140 mg subcutaneously every 2 weeks. No current facility-administered medications for this visit. ROS: Card: See present history. Pulm: Negative for cough, hemoptysis, wheezing, COPD, dyspnea or shortness of breath Gastro: No nausea, vomiting, or diarrhea GenUr: No history of dysuria, frequency or incontinence Endo: Negative for cold or heat intolerance, polyuria or polydipsia. Neuro: no focal weakness, focal sensory loss, headache, visual changes, seizure activity, ataxia, speech/language loss. Musculoskeletal: Negative for joint or muscle pain, back pain, or swelling. Infect: no fevers, chills, rigors or night sweats. Skin: Negative for lesions, rash, and itching. Heme: Negative for prolonged bleeding, bruising easily or swollen nodes. The remainder of the review of systems is negative. PHYSICAL EXAMINATION: GENERAL: alert cooperative, pleasant oriented x 3 (self, time and place) in no acute distress overweight BP 140/82 Pulse 75 Ht 175.3 cm (5' 9 ) Wt 97.2 kg (214 lb 4.6 oz) SpO2 98% BMI 31.64 kg/m? Last 3 Encounter BP Readings: Date: BP: 09/04/2019 132/70 06/15/2019 148/92 12/05/2018 140/93 Last 3 Encounter Pulse Readings: Date: Pulse: 09/04/2019 63 06/15/2019 69 12/05/2018 81 Last 3 Encounter Wt Readings: Date: Wt: 09/04/2019 98.4 kg (217 lb) 06/15/2019 95.7 kg (211 lb) 12/05/2018 99.8 kg (220 lb) SKIN: warm, dry, no rash. NECK: supple, no palpable masses, no JVD, carotids well felt, no bruits. CARDIAC: [place] palpable in the 5th intercostal space mid clavicular line, normal S1 and S2, no murmurs, gallops, or rubs. CHEST: Normal respiratory efforts, lungs clear to auscultation bilaterally. ABDOMEN: Soft, no tenderness, rigidity, or masses. No palpable liver or spleen. Normal bowel sounds, no bruits. NEURO: intact cranial nerves II through XII, no motor or sensory deficits in (more content not included)... [facility] 12-13-2023 Miscellaneous Notes Addressed in previous enc. Patient's spouse, Anna, is calling for two reasons. Patient has an up coming office visit. Will he needs labs done for his visit? No orders in system at this time. Patient's Repatha medication needs a prior authorization and needs additional documentation showing medical necessity. Per Anna, the insurance company was sending in a letter to request this information approximately three weeks ago. Please contact the patient with an update. Patient has only one dose of medication left. Call back # [phone] documented in this encounter [facility] 07-26-2023 Miscellaneous Notes [facility] PA sent to plan: [id number] A new prior authorization (PA) request cannot be started at this time because there is a request already open for this drug with CoverMyMeds. Please contact the PA call center if you have questions on the status of this request. documented in this encounter [facility] 04-24-2023 Miscellaneous Notes Pharmacy verified in [facility] Patient has been identified by name and date of : Yes Patient aware RX will be sent to pharmacy. No need to notify patient. Patient phones for refill(s): Requested Prescriptions Pending Prescriptions Disp Refills amLODIPine (NORVASC) 5 mg tablet 90 tablet 3 Sig: Take 1 tablet by mouth once daily. clopidogrel (PLAVIX) 75 mg tablet 90 tablet 3 Sig: Take 1 tablet by mouth once daily. losartan (COZAAR) 50 mg tablet 90 tablet 3 Sig: Take 1 tablet by mouth once daily. metoprolol tartrate, short acting, (LOPRESSOR) 25 mg tablet 90 tablet 3 Sig: TAKE 1/2 (ONE-HALF) OF A TABLET TWICE DAILY rosuvastatin (CRESTOR) 5 mg tablet 36 tablet 3 Sig: Take 1 tablet by mouth three times a week. Date of last office visit : 08/03/2022 Date of next office visit : 09/06/2023 Last 2 Encounter Wt Readings: Date: Wt: 08/03/2022 98.5 kg (217 lb 3.2 oz) 01/08/2022 100.4 kg (221 lb 4.8 oz) Not applicable Please advise. Sandra Jones documented in this encounter [facility] 01-28-2023 Miscellaneous Notes Patient has been identified by name and date of : Yes Requested Prescriptions Pending Prescriptions Disp Refills nitroglycerin sublingual (NITROQUICK) 0.4 mg SL tablet Sig: Dissolve 1 tablet under the tongue as needed. FOR CHEST PAIN. IF NO RELIEF CALL 911 RX INSTRUCTIONS: Patient aware RX will be sent to pharmacy. No need to notify patient. Manuela Salcido documented in this encounter [facility] 08-03-2022 Instructions Adwoa Scherer APRN.CNP - 08/03/2022 9:42 AM EST LDL has gone up a little bit --- > up to 94 Goal LDL is closer to 70 Continue Crestor 5 mg (3 times a week) Continue Repatha every 2 weeks Try and increase exercise - you admitted that you have slacked off. I am encouraged by the idea of getting back to this. Increase dietary fiber ----> miracle fiber at [employer] or [employer] is another option. Continue all other meds. This is all good today Let me know if you need refills. Follow up in 6 months time documented in this encounter [facility] 08-03-2022 History of Present illness Narrative Images from the original note were not included. [facility] [place] [facility] Department of Cardiovascular Medicine SECTION OF CLINICAL CARDIOLOGY OUTPATIENT VISIT DATE August 03, 2022 OUTPATIENT VISIT TYPE ESTABLISHED Patient Name: Hamzah Tanner : 1975 PRIMARY CARE PHYSICIAN: No primary care provider on file. CHIEF COMPLAINT: Patient presents with: Cardiology Follow Up : No issues Interval Hx: Mr. Tanner is a 47-year-old male with a past medical history of CAD status post CABG x4 in 2012, PCI to his left main and circumflex artery in 2016, hypertension, hyperlipidemia comes for a follow up visit . The last office visit visit with Dr. Washington was 01/08/2022. Since last office visit patient has been feeling good Taking meds as ordered yes (Repatha and Crestor) - tolerating Taking Crestor Saturday/Saturday/Saturday Does not tolerate more frequent dosing. 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 No NSAID use IMPRESSION/PLAN: ASSESSMENT/PLAN: 1. Coronary artery disease involving barrow coronary artery of barrow heart without angina pectoris - ICD9: 414.01, ICD10: I25.10 (primary diagnosis) 2. Hx of CABG - ICD9: V45.81, ICD10: Z95.1 3. S/P drug eluting coronary stent placement - ICD9: V45.82, ICD10: Z95.5 - Patient is s/p ARAMIS to LM and Cx in 2016 - s/p CABG X 4 ((CABRERA LAD, BEBETO R, SVG Cx, SVG OM1)in 2012 - Patient appears compensated from cardiac standpoint - Continue ASA, Statin and BB as currently ordered - Most recent LDL 94 - this is NOT at goal. Patient admits to changes in diet and lifestyle and has asked to make changes before any new meds are added or considered. - Goal LDL less than 70 - check lipids before next OV with Dr. Washington. 4. Lipid disorder - ICD9: 272.9, ICD10: E78.9 5. Familial hypercholesterolemia - ICD9: 272.0, ICD10: E78.01 - Last FLP 08/01/2022 - LDL 94 - Continue Crestor and Repatha - Low fat / low cholesterol diet I spent a total of 30 minutes on the date of the service which included preparing to see the patient, [id number] patient care, completing clinical documentation, counseling and educating the patient/family/caregiver, ordering medications, tests, or procedures, and communicating results to the patient/family/caregiver. Thank you very much for allowing me to assist in the care of Hamzah Tanner. Please do not hesitate to contact me if you have questions or concerns. Adwoa Scherer APRN.[facility] Cardiology Nurse Practitioner [facility] Card[facility] Dept of Cardiovascular Medicine [facility] [place] [address] Office Office August 03, 2022 7:55 AM This note was partially generated using [employer] voice recognition system and may contain errors related to that system including grammar, punctuation, spelling, and words that may be inappropriate. CARDIAC STUDIES: LV Ejection Fraction (%) Date Value 05/01/2013 59 Last EKG Result Conclusion ECG COMPLETE Collected: 01/08/2022 7:30 AM (Preliminary result) Impression: SINUS RHYTHM WITH 1ST DEGREE AV BLOCK OTHERWISE NORMAL ECG LABS: Sodium (mmol/L) Date Value 08/01/2022 138 01/04/2022 140 06/08/2020 137 06/09/2019 138 Potassium (mmol/L) Date Value 08/01/2022 4.6 01/04/2022 4.2 06/08/2020 4.4 06/09/2019 4.2 BUN (mg/dL) Date Value 08/01/2022 20 01/04/2022 17 06/08/2020 15 06/09/2019 17 11/12/2018 16 07/03/2018 15 Creatinine (mg/dL) Date Value 08/01/2022 0.95 01/04/2022 0.96 06/08/2020 0.89 06/09/2019 0.91 11/12/2018 0.89 07/03/2018 0.85 Magnesium (mg/dL) Date Value 05/04/2013 2.1 05/03/2013 2.0 Hemoglobin (g/dL) Date Value 01/04/2022 14.4 06/08/2020 14.2 05/17/2016 14.5 No results found for: PROBNP No results found for: HSTNT Cholesterol, Total (mg/dL) Date Value 08/01/2022 162 07/28/2021 142 HDL Cholesterol (mg/dL) Date Value 08/01/2022 46 07/28/2021 55 Triglyceride (mg/dL) Date Value 08/01/2022 110 07/28/2021 107 LDL Cholesterol (mg/dL) Date Value 08/01/2022 94 07/28/2021 66 TSH (uU/mL) Date Value 06/26/2016 1.020 PT INR (no units) Date Value 05/17/2016 1.0 There were no tests performed for review. PHYSICAL EXAMINATION: Vitals: BP 120/78 Pulse 84 Ht 175.3 cm (5' 9 ) Wt 98.5 kg (217 lb 3.2 oz) SpO2 97% BMI 32.07 kg/m General: Well appearing, in no acute distress. Skin: No clubbing, no cyanosis. Eyes: Extra ocular movements intact Oropharynx: Teeth in good repair. Neck: No jugular venous distention, no carotid bruits, carotids have a normal upstroke, no palpable thyromegaly. Lungs: Clear to auscultation bilaterally, no wheezing or rhonchi. Heart: Regular rhythm, PMI not displaced, S1, S2 normal, no S3, no S4, no heaves, no rub and no murmur. Abdomen: Soft, nontender, bowel sounds normal, no palpable organomegaly, no bruits. Extremities: No peripheral edema . Grade 2/4 distal pulses bilaterally. Neuro: Oriented to person, place and time, alert, cooperative, gait coordinated. REVIEW OF SYSTEMS: GENERAL: Negative for: Weight loss or gain, Fever or Chills, Weakness and Sleep difficulties. HEENT: Negative for: Headache, Impaired Vision, Glasses, Hearing Impairment, Ringing in Ears, Nosebleeds, Poor dental care, Bleeding Gums, Dentures NECK: Negative for: Swelling, Pain, Stiffness RESPIRATORY: Negative for: Cough, Blood in Sputum, Shortness of breath, Wheezing, Apnea GASTROINTESTINAL: Negative for: Trouble swallowing, Heartburn, Change in bowel habits, Blood in stool, Dark black stools MUSCULOSKELETAL: Negative for: Muscle or joint pain, Stiffness , Joint swelling NEUROLOGIC/PSYCHIATRIC: Negative for: Weakness, Paralysis, Numbness, Tingling, Tremor, Nervousness, Depressed mood, Memory loss SKIN: Negative for: Rashes, Itching HEMATOLOGICAL/LYMPHATIC: Negative for: Easy bruising , Easy bleeding ENDOCRINE: Negative for: Heat or cold intolerance, Excessive sweating, Frequent urination, Frequent thirst ALLERGIES: Lisinopril PAST MEDICAL HISTORY: PAST MEDICAL HISTORY Diagnosis Date Acute cholecystitis 07/25/2015 HTN (hypertension) Hyperlipidemia SOCIAL HISTORY: Social History Tobacco Use Smoking status: Never Smokeless tobacco: Never Substance Use Topics Alcohol use: Yes Alcohol/week: 7.5 standard drinks Types: 3 Cans of Beer (12oz) per week Drug use: No Comment: 3 /week - but not always FAMILY HISTORY: FAMILY HISTORY Problem Relation Age of Onset Ischemic Heart Disease Brother 2 borthers had MO's, one had CABG age 38, other of MO age 40 Stroke Father Ischemic Heart Disease Father MO, CABG age 67 other (carotid stenosis) Father I have confirmed and edited as necessary, the PFSH and ROS obtained by others. Adwoa Scherer APRN.[facility] CURRENT MEDICATIONS: Current Outpatient Medications Medication Sig metoprolol tartrate, short acting, (LOPRESSOR) 25 mg tablet TAKE 1/2 (ONE-HALF) OF A TABLET TWICE DAILY losartan (COZAAR) 50 mg tablet Take 1 tablet by mouth once daily. clopidogrel (PLAVIX) 75 mg tablet Take 1 tablet by mouth once daily. amLODIPine (NORVASC) 5 mg tablet Take 1 tablet by mouth once daily. evolocumab (REPATHA SURECLICK) 140 mg/mL pen injector Inject 1 pen (140 mg) subcutaneously every 2 weeks. rosuvastatin (CRESTOR) 5 mg tablet Take 1 tablet by mouth three times a week. nitroglycerin sublingual (NITROQUICK) 0.4 mg SL tablet Dissolve 1 tablet under the tongue as needed. FOR CHEST PAIN. IF NO RELIEF CALL 911 coenzyme Q-10 double strength 100 mg/5 ml Take 5 mL by mouth once daily. aspirin 81 mg chewable tablet Take 1 tablet by mouth once daily. No current facility-administered medications for this visit. documented in this encounter [facility] 07-16-2022 Miscellaneous Notes Received call asking for labwork to be ordered prior to appointment Saturday; returned call to inform patient he does not have an appointment. Cancellation notice had been sent as Dr. Washington is out of the office this week. Requested patient call back to be rescheduled as soon as possible. documented in this encounter [facility] 04-05-2022 Miscellaneous Notes Pharmacy verified in [facility] Patient has been identified by name and date of : Yes Patient aware RX will be sent to pharmacy. No need to notify patient. Patient phones for refill(s): Pending Prescriptions Disp Refills METOPROLOL TARTRATE 25 MG TABLET 90 tablet 3 Sig: TAKE 1/2 (ONE-HALF) OF A TABLET TWICE DAILY CHRIS: No LOSARTAN 50 MG TABLET 90 tablet 3 Sig: Take 1 tablet by mouth once daily. CHRIS: No CLOPIDOGREL 75 MG TABLET 90 tablet 3 Sig: Take 1 tablet by mouth once daily. CHRIS: No AMLODIPINE 5 MG TABLET 90 tablet 3 Sig: Take 1 tablet by mouth once daily. CHRIS: No Date of last office visit : 01/08/2022 Date of next office visit : Visit date not found Last 2 Encounter Wt Readings: Date: Wt: 01/08/2022 100.4 kg (221 lb 4.8 oz) 01/06/2021 96.1 kg (211 lb 12.8 oz) Not applicable Please advise. Sandra Jones documented in this encounter [facility] 01-08-2022 History of Present illness Narrative Images from the original note were not included. [facility] [place] Greg Funes Department of Cardiovascular Medicine SECTION OF REGIONAL CARDIOLOGY 01/08/22 MONTRELL: 01/06/21 HPI: Hamzah Tanner is a 46 year old male who is here today for follow up. He has CAD and is s/p CABGx4 2012, PCI LM, Cx 2015. He has been doing well since we last saw him. He did have trouble getting his Repatha due to the company changing protocol or carrying this however he is back on track. The patient is involved in sporadic irregular exercise Patient denies SOB, chest pain, dizziness, lightheadedness, palpitations, lower extremity edema, PND, orthopnea, presyncope, syncope or claudication symptoms. Prior history: 01/06/2021: He has had trouble with lipids and stopped statin because it makes him forgetful so he stopped taking it. His LDL remained elevated at 83. He also misses meds occasionally. We increased Losartan to 25 mg daily for hypertension and added Crestor 5 mg once in a while with PCSK9i and recent recheck of lipids in 06/08/20 showing LDL 100. 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 REPAIR INGUINAL HERNIA FAMILY HISTORY Problem Relation Age of Onset Ischemic Heart Disease Brother 2 borthers had MO's, one had CABG age 38, other of MO age 40 Stroke Father Ischemic Heart Disease Father MO, CABG age 67 other (carotid stenosis) Father SOCIAL HISTORY Social History Tobacco Use Smoking status: Never Smoker Smokeless tobacco: Never Used Substance Use Topics Alcohol use: Yes Alcohol/week: 7.5 standard drinks Types: 3 Cans of Beer (12oz) per week Drug use: No Comment: 3 /week - but not always ALLERGIES: Lisinopril CURRENT MEDICATIONS: Current Outpatient Medications Medication Sig evolocumab (REPATHA SURECLICK) 140 mg/mL pen injector Inject 1 pen (140 mg) subcutaneously every 2 weeks. metoprolol tartrate, short acting, (LOPRESSOR) 25 mg tablet TAKE 1/2 (ONE-HALF) OF A TABLET TWICE DAILY losartan (COZAAR) 50 mg tablet Take 1 tablet by mouth once daily. clopidogrel (PLAVIX) 75 mg tablet Take 1 tablet by mouth once daily. amLODIPine (NORVASC) 5 mg tablet Take 1 tablet by mouth once daily. rosuvastatin (CRESTOR) 5 mg tablet Take 1 tablet by mouth three times a week. nitroglycerin sublingual (NITROQUICK) 0.4 mg SL tablet Dissolve 1 tablet under the tongue as needed. FOR CHEST PAIN. IF NO RELIEF CALL 911 coenzyme Q-10 double strength 100 mg/5 ml Take 5 mL by mouth once daily. aspirin 81 mg chewable tablet Take 1 tablet by mouth once daily. No current facility-administered medications for this visit. ROS: Card: See present history. Pulm: Negative for cough, hemoptysis, wheezing, COPD, dyspnea or shortness of breath Gastro: No nausea, vomiting, or diarrhea GenUr: No history of dysuria, frequency or incontinence Endo: Negative for cold or heat intolerance, polyuria or polydipsia. Neuro: no focal weakness, focal sensory loss, headache, visual changes, seizure activity, ataxia, speech/language loss. Musculoskeletal: Negative for joint or muscle pain, back pain, or swelling. Infect: no fevers, chills, rigors or night sweats. Skin: Negative for lesions, rash, and itching. Heme: Negative for prolonged bleeding, bruising easily or swollen nodes. The remainder of the review of systems is negative. PHYSICAL EXAMINATION: GENERAL: alert cooperative, pleasant oriented x 3 (self, time and place) in no acute distress overweight BP 126/78 Pulse 62 Ht 175.3 cm (5' 9 ) Wt 100.4 kg (221 lb 4.8 oz) SpO2 96% BMI 32.68 kg/m Last 3 Encounter BP Readings: Date: BP: 09/04/2019 132/70 06/15/2019 148/92 12/05/2018 140/93 Last 3 Encounter Pulse Readings: Date: Pulse: 09/04/2019 63 06/15/2019 69 12/05/2018 81 Last 3 Encounter Wt Readings: Date: Wt: 09/04/2019 98.4 kg (217 lb) 06/15/2019 95.7 kg (211 lb) 12/05/2018 99.8 kg (220 lb) SKIN: warm, dry, no rash. NECK: supple, no palpable masses, no JVD, carotids well felt, no bruits. CARDIAC: [place] palpable in the 5th intercostal space mid clavicular line, normal S1 and S2, no murmurs, gallops, or rubs. CHEST: Normal respiratory efforts, lungs clear to auscultation bilaterally. ABDOMEN: Soft, no tenderness, rigidity, or masses. No palpable liver or spleen. Normal bowel sounds, no bruits. NEURO: intact cranial nerves II through XII, no motor or sensory deficits in all 4 extremities. EXTREMITIES: No cyanosis, clubbing, or edema. Peripheral pulses well felt. CARDIAC (& OTHER IMPORTANT) TESTING: The following testing (including images and tracings) were personally reviewed by myself: MPI 01/04/20: CONCLUSIONS: 1. SPECT Perfusion Study: Normal. 2. There is no scintigraphic evidence for inducible ischemia. 3. No evidence of scarred myocardium. 4. Functional capacity N/A (pharmacological). 5. Left ventricle is normal in size. The left ventricle systolic function is normal. 6. Right ventricle is normal in size. 7. This is a low risk scan. LVEF % 69 / 72 PCI LCx and LM 05/22/16: PROCEDURAL SUMMARY: Successful PCI to the distal LMT with a 4.0x12 Xience Alpine EES Successful PCI to the proximal and mid LCx with a 3.0x20 Xience Alpine EES, post-dilated with a 3.5x15 Euphora NC proximally [facility] 06/01/16:(prior to PCI to LCx and LM) Diagnostic catheterization findings: LM - mid and distal 80-90% stenosis LAD - 100% ostial occlusion LCX - dominant, with proximal tubular 60-70% stenosis. High lateral 100%. No competitive flow from a graft in the large distal dominant LCX system. RCA - non-dominant, small, moderate diffuse disease CABRERA to LAD - widely patent SVG to LCX-HL - widely patent. Free BEBETO Y-graft from SVG (to LCX-HL) to diagonal - widely patent SVG to PDA - could not be clearly selectively engaged. Presumed occluded. Plan: PCI to LCx and LM. [facility] 04/30/13 (prior to CABG) Anatomic findings Coronary anatomy: - Left main trunk: There is a 50% stenosis in a large (>3.0mm) left main coronary artery. - Left anterior descending: There is a 70% stenosis in a large (>3.0mm) proximal left anterior descending. - Right coronary artery: The right coronary artery is a dominant vessel. There is a 80% stenosis in a small (1.5-2.4mm) proximal right coronary artery. - Left circumflex: The left circumflex is a non-dominant vessel. There is a 70% stenosis in a large (>3.0mm) proximal circumflex. 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 He is s/p CABG x 4 - 2012, PCI LM, Cx 2016. He has had trouble with lipids and stopped statin because it makes him forgetful . We had a long discussion regarding these concerns and also the importance of aggressive secondary prevention his aggressive premature coronary artery disease in the past and currently. He is doing well without any significant changes. His LDL is slightly higher than goal and this is partly due to missing some injections of his PCSK9 inhibitor due to the company changing availability. He is back on track now and should have this rechecked in a few months.. His BP is better after med adjustment. He will try to be more consistent with his exercise and we had a long discussion outlining exercise recommendations. We also had a long discussion regarding heart healthy diet and lifestyle in general. We did check a MPI 01/04/20 and it was normal.. Thank you for allowing me the privilege of participating in the care of your patient. Please do not hesitate to contact me if there are any questions. Gifty Washington DO, FACC, FCCP, FACOI CC: Kyle Maynard MD [address] [place] [address] [place] [address] documented in this encounter [facility] 01-08-2022 Miscellaneous Notes LDL 78 - increase from 5 months ago - on Repatha and Crestor 5 mg daily LFT, CBC, and CMP unremarkable. Patient has follow up with Dr. Washington today. Adwoa Scherer APRN.CNP documented in this encounter [facility] 01-03-2022 Miscellaneous Notes Orders signed. Adwoa Scherer APRN.[employer] documented in this encounter [facility] documented as of this encounter (statuses as of 01/03/2022) [facility]08-[facility]2013 History of Past illness Narrative* Problem Noted Date Resolved Date SUMMARY 05/06/2013 06/22/2016 Overview: Presentation / Principal Diagnosis: CAD. Patient with posotive family h/o early Cad/coronary events, known with HLP now with positive stress test. Cath: multivessel CAD Preop: LVEF:nl RVF: nl Surgery: CABG Date:05/04/2013 Major Comorbidities:HLP Airway: easy OR Course: hypotension . Post CPB: LVEF: nl RVF: nl Issues to communicate at signout: MS air leak. PLan to clamp and check CXR. As long as no ptx or subq develops will d/c MS and keep pleurals and transfer to [facility]. A/P 38 y/o male with history of CAD 1. Coronary Artery Disease - s/p CABG x4. On ASA, BB and statin. 2. Post-operative pain - Improved this AM. Noting to be better with removal of pleural tubes. 3. Fluid overload - Diuresis with lasix 20 mg IV BID to continue. Transition to oral regimen this afternoon. Monitor I and O. 4. Hyperlipidemia - LDL pre-op on simvistatin 40 mg not at goal < 70. Continue lipitor 80 mg qhs. F/u with prev cardiolog 5. Discharge planning - Resides in [place], [place]. . No needs anticipated. Stress hyperglycemia 05/06/2013 05/08/2013 Overview: NO prior history of DM. D/c accu-check and SSI coverage Fluid overload 05/06/2013 05/11/2013 Overview: No prior history of diuretic use. Volume overloaded from OHS ? - diuresing with lasix - transition to 20 mg IV Monitor I and O. Hyperkalemia 05/05/2013 05/07/2013 Overview: one episode overnight, K+max 6.2; received a K+ cocktail. Normal kidney function. Was hyperglycemic at that time. Last potassium 4.2. Monitor closely. Hypotension, unspecified 05/04/2013 013 Overview: History: postop Assessment: low SVR Plan: volume, wean levo. Bleeding 05/04/2013 05/05/2013 Overview: History: Dry in OR. No products needed. Dumped 200 cc out of lt pleural. (total 380 cc in 35 minutes) Assessment: Stable hemodynamics, mediastinal silhouette stable, no pleural effusion, pressor requirement stable. Plan: check coags, likely the blood was pooled in the left chest at the end of procedure. For now keep ETT until clear. Discharge Planning 05/03/2013 05/11/2013 Overview: Patient is from [place], [place]. No needs anticipated OPD visit Preop testing 05/01/2013 05/06/2013 Overview: Images from the original note were not included. [facility] PRE[facility] Surgeon: Alfred Grove M.D. Informed Consent Completed: No STS Score: 0.215% for CABG CAD: Yes - CAD on Problem List: Yes Is intended procedure a CABG: Yes - is a beta monet ordered? Yes H & P completed: Yes PA/LAT: Completed CT: N/A MRI: N/A LE US: N/A Cath: Yes - reviewed: Yes Echo: Completed EKG: Completed EF %: 59 PI's: Completed Carotid: Completed Mapping: N/A Dental: N/A PFT's: Complete Basename 05/03/13 0553 05/02/13 0835 05/01/13 1738 05/01/13 0154 WBC 8.99 8.58 -- 10.54 HB 15.3 16.0 -- 14.4 HCT 43.8 46.3 -- 42.4 PLT 343 343 -- 315 NA 135 136 -- 139 K 4.2 4.5 4.7 -- CHLOR 97* 96* -- 101 CO2 24 27 -- 24 CREAT 0.98 1.03 -- 0.89 BUN 20 15 -- 16 GLUC 95 87 -- 84 P -- -- -- -- TPROT -- -- -- 6.7 ALB -- -- -- 4.1 MG 2.0 2.2 -- 2.1 CA 10.0 10.1 -- 9.3 ALKPHOS -- -- -- 54 TBILI -- -- -- 0.4 AST -- -- -- 25 ALT -- -- -- 38 CRP -- -- -- -- ESR -- -- -- -- PT INR (no units) Date Value 05/03/2013 1.0 UA: neg HCG:N/A ABO/ABO Confirmed: A+/neg Blood ordered: TSH SA Swab: Yes - results: Neg/neg Last Dose of Anticoagulation: Aspirin 81 Op Note: N/A Pacemaker Check: N/A Consults: None DM: No, hgba1c 5.9 Cardiac Surgical prep: Yes SIGNATURE: Carole Flores CNP CHECKED BY: YANN DATE of SERVICE: 05/01/2013 TIME of SERVICE: 9:30 AM Updated: 05/03/2013: Darcie Dallas CNP Hypertension 05/01/2013 05/06/2013 Overview: Home medication: lisinopril 10 mg was on levo this AM, vasodilated; SBP currently 90s-100s; start beta monet when BP allows Positive cardiac stress test 05/01/2013 documented as of this encounter (statuses as of 01/08/2022) [facility] History of Past illness Narrative* Problem Noted Date Resolved Date SUMMARY 05/06/2013 06/22/2016 Overview: Presentation / Principal Diagnosis: CAD. Patient with posotive family h/o early Cad/coronary events, known with HLP now with positive stress test. Cath: multivessel CAD Preop: LVEF:nl RVF: nl Surgery: CABG Date:05/04/2013 Major Comorbidities:HLP Airway: easy OR Course: hypotension . Post CPB: LVEF: nl RVF: nl Issues to communicate at signout: MS air leak. PLan to clamp and check CXR. As long as no ptx or subq develops will d/c MS and keep pleurals and transfer to [facility]. A/P 38 y/o male with history of CAD 1. Coronary Artery Disease - s/p CABG x4. On ASA, BB and statin. 2. Post-operative pain - Improved this AM. Noting to be better with removal of pleural tubes. 3. Fluid overload - Diuresis with lasix 20 mg IV BID to continue. Transition to oral regimen this afternoon. Monitor I and O. 4. Hyperlipidemia - LDL pre-op on simvistatin 40 mg not at goal < 70. Continue lipitor 80 mg qhs. F/u with prev cardiolog 5. Discharge planning - Resides in [place], [place]. . No needs anticipated. Stress hyperglycemia 05/06/2013 05/08/2013 Overview: NO prior history of DM. D/c accu-check and SSI coverage Fluid overload 05/06/2013 05/11/2013 Overview: No prior history of diuretic use. Volume overloaded from OHS ? - diuresing with lasix - transition to 20 mg IV Monitor I and O. Hyperkalemia 05/05/2013 05/07/2013 Overview: one episode overnight, K+max 6.2; received a K+ cocktail. Normal kidney function. Was hyperglycemic at that time. Last potassium 4.2. Monitor closely. Hypotension, unspecified 05/04/2013 013 Overview: History: postop Assessment: low SVR Plan: volume, wean levo. Bleeding 05/04/2013 05/05/2013 Overview: History: Dry in OR. No products needed. Dumped 200 cc out of lt pleural. (total 380 cc in 35 minutes) Assessment: Stable hemodynamics, mediastinal silhouette stable, no pleural effusion, pressor requirement stable. Plan: check coags, likely the blood was pooled in the left chest at the end of procedure. For now keep ETT until clear. Discharge Planning 05/03/2013 05/11/2013 Overview: Patient is from [place], [place]. No needs anticipated OPD visit Preop testing 05/01/2013 05/06/2013 Overview: Images from the original note were not included. [facility] PRE[facility] Surgeon: Alrfed Grove M.D. Informed Consent Completed: No STS Score: 0.215% for CABG CAD: Yes - CAD on Problem List: Yes Is intended procedure a CABG: Yes - is a beta monet ordered? Yes H & P completed: Yes PA/LAT: Completed CT: N/A MRI: N/A LE US: N/A Cath: Yes - reviewed: Yes Echo: Completed EKG: Completed EF %: 59 PI's: Completed Carotid: Completed Mapping: N/A Dental: N/A PFT's: Complete Basename 05/03/13 0553 05/02/13 0835 05/01/13 1738 05/01/13 0154 WBC 8.99 8.58 -- 10.54 HB 15.3 16.0 -- 14.4 HCT 43.8 46.3 -- 42.4 PLT 343 343 -- 315 NA 135 136 -- 139 K 4.2 4.5 4.7 -- CHLOR 97* 96* -- 101 CO2 24 27 -- 24 CREAT 0.98 1.03 -- 0.89 BUN 20 15 -- 16 GLUC 95 87 -- 84 P -- -- -- -- TPROT -- -- -- 6.7 ALB -- -- -- 4.1 MG 2.0 2.2 -- 2.1 CA 10.0 10.1 -- 9.3 ALKPHOS -- -- -- 54 TBILI -- -- -- 0.4 AST -- -- -- 25 ALT -- -- -- 38 CRP -- -- -- -- ESR -- -- -- -- PT INR (no units) Date Value 05/03/2013 1.0 UA: neg HCG:N/A ABO/ABO Confirmed: A+/neg Blood ordered: TSH SA Swab: Yes - results: Neg/neg Last Dose of Anticoagulation: Aspirin 81 Op Note: N/A Pacemaker Check: N/A Consults: None DM: No, hgba1c 5.9 Cardiac Surgical prep: Yes SIGNATURE: Carole Flores CNP CHECKED BY: YANN DATE of SERVICE: 05/01/2013 TIME of SERVICE: 9:30 AM Updated: 05/03/2013: Darcie Dallas CNP Hypertension 05/01/2013 05/06/2013 Overview: Home medication: lisinopril 10 mg was on levo this AM, vasodilated; SBP currently 90s-100s; start beta monet when BP allows Positive cardiac stress test 05/01/2013 documented as of this encounter (statuses as of 01/08/2022) [facility] History of Past illness Narrative* Problem Noted Date Resolved Date SUMMARY 05/06/2013 06/22/2016 Overview: Presentation / Principal Diagnosis: CAD. Patient with posotive family h/o early Cad/coronary events, known with HLP now with positive stress test. Cath: multivessel CAD Preop: LVEF:nl RVF: nl Surgery: CABG Date:05/04/2013 Major Comorbidities:HLP Airway: easy OR Course: hypotension . Post CPB: LVEF: nl RVF: nl Issues to communicate at signout: MS air leak. PLan to clamp and check CXR. As long as no ptx or subq develops will d/c MS and keep pleurals and transfer to [facility]. A/P 38 y/o male with history of CAD 1. Coronary Artery Disease - s/p CABG x4. On ASA, BB and statin. 2. Post-operative pain - Improved this AM. Noting to be better with removal of pleural tubes. 3. Fluid overload - Diuresis with lasix 20 mg IV BID to continue. Transition to oral regimen this afternoon. Monitor I and O. 4. Hyperlipidemia - LDL pre-op on simvistatin 40 mg not at goal < 70. Continue lipitor 80 mg qhs. F/u with prev cardiolog 5. Discharge planning - Resides in [place], [place]. . No needs anticipated. Stress hyperglycemia 05/06/2013 05/08/2013 Overview: NO prior history of DM. D/c accu-check and SSI coverage Fluid overload 05/06/2013 05/11/2013 Overview: No prior history of diuretic use. Volume overloaded from OHS ? - diuresing with lasix - transition to 20 mg IV Monitor I and O. Hyperkalemia 05/05/2013 05/07/2013 Overview: one episode overnight, K+max 6.2; received a K+ cocktail. Normal kidney function. Was hyperglycemic at that time. Last potassium 4.2. Monitor closely. Hypotension, unspecified 05/04/2013 013 Overview: History: postop Assessment: low SVR Plan: volume, wean levo. Bleeding 05/04/2013 05/05/2013 Overview: History: Dry in OR. No products needed. Dumped 200 cc out of lt pleural. (total 380 cc in 35 minutes) Assessment: Stable hemodynamics, mediastinal silhouette stable, no pleural effusion, pressor requirement stable. Plan: check coags, likely the blood was pooled in the left chest at the end of procedure. For now keep ETT until clear. Discharge Planning 05/03/2013 05/11/2013 Overview: Patient is from [place], [place]. No needs anticipated OPD visit Preop testing 05/01/2013 05/06/2013 Overview: Images from the original note were not included. [facility] PRE[facility] Surgeon: Alfred Grove M.D. Informed Consent Completed: No STS Score: 0.215% for CABG CAD: Yes - CAD on Problem List: Yes Is intended procedure a CABG: Yes - is a beta monet ordered? Yes H & P completed: Yes PA/LAT: Completed CT: N/A MRI: N/A LE US: N/A Cath: Yes - reviewed: Yes Echo: Completed EKG: Completed EF %: 59 PI's: Completed Carotid: Completed Mapping: N/A Dental: N/A PFT's: Complete Basename 05/03/13 0553 05/02/13 0835 05/01/13 1738 05/01/13 0154 WBC 8.99 8.58 -- 10.54 HB 15.3 16.0 -- 14.4 HCT 43.8 46.3 -- 42.4 PLT 343 343 -- 315 NA 135 136 -- 139 K 4.2 4.5 4.7 -- CHLOR 97* 96* -- 101 CO2 24 27 -- 24 CREAT 0.98 1.03 -- 0.89 BUN 20 15 -- 16 GLUC 95 87 -- 84 P -- -- -- -- TPROT -- -- -- 6.7 ALB -- -- -- 4.1 MG 2.0 2.2 -- 2.1 CA 10.0 10.1 -- 9.3 ALKPHOS -- -- -- 54 TBILI -- -- -- 0.4 AST -- -- -- 25 ALT -- -- -- 38 CRP -- -- -- -- ESR -- -- -- -- PT INR (no units) Date Value 05/03/2013 1.0 UA: neg HCG:N/A ABO/ABO Confirmed: A+/neg Blood ordered: TSH SA Swab: Yes - results: Neg/neg Last Dose of Anticoagulation: Aspirin 81 Op Note: N/A Pacemaker Check: N/A Consults: None DM: No, hgba1c 5.9 Cardiac Surgical prep: Yes SIGNATURE: Carole Flores CNP CHECKED BY: YANN DATE of SERVICE: 05/01/2013 TIME of SERVICE: 9:30 AM Updated: 05/03/2013: Darcie Dallas CNP Hypertension 05/01/2013 05/06/2013 Overview: Home medication: lisinopril 10 mg was on levo this AM, vasodilated; SBP currently 90s-100s; start beta monet when BP allows Positive cardiac stress test 05/01/2013 documented as of this encounter (statuses as of 04/05/2022) [facility] History of Past illness Narrative* Problem Noted Date Resolved Date SUMMARY 05/06/2013 06/22/2016 Overview: Presentation / Principal Diagnosis: CAD. Patient with posotive family h/o early Cad/coronary events, known with HLP now with positive stress test. Cath: multivessel CAD Preop: LVEF:nl RVF: nl Surgery: CABG Date:05/04/2013 Major Comorbidities:HLP Airway: easy OR Course: hypotension . Post CPB: LVEF: nl RVF: nl Issues to communicate at signout: MS air leak. PLan to clamp and check CXR. As long as no ptx or subq develops will d/c MS and keep pleurals and transfer to [facility]. A/P 38 y/o male with history of CAD 1. Coronary Artery Disease - s/p CABG x4. On ASA, BB and statin. 2. Post-operative pain - Improved this AM. Noting to be better with removal of pleural tubes. 3. Fluid overload - Diuresis with lasix 20 mg IV BID to continue. Transition to oral regimen this afternoon. Monitor I and O. 4. Hyperlipidemia - LDL pre-op on simvistatin 40 mg not at goal < 70. Continue lipitor 80 mg qhs. F/u with prev cardiolog 5. Discharge planning - Resides in [place], [place]. . No needs anticipated. Stress hyperglycemia 05/06/2013 05/08/2013 Overview: NO prior history of DM. D/c accu-check and SSI coverage Fluid overload 05/06/2013 05/11/2013 Overview: No prior history of diuretic use. Volume overloaded from OHS ? - diuresing with lasix - transition to 20 mg IV Monitor I and O. Hyperkalemia 05/05/2013 05/07/2013 Overview: one episode overnight, K+max 6.2; received a K+ cocktail. Normal kidney function. Was hyperglycemic at that time. Last potassium 4.2. Monitor closely. Hypotension, unspecified 05/04/2013 013 Overview: History: postop Assessment: low SVR Plan: volume, wean levo. Bleeding 05/04/2013 05/05/2013 Overview: History: Dry in OR. No products needed. Dumped 200 cc out of lt pleural. (total 380 cc in 35 minutes) Assessment: Stable hemodynamics, mediastinal silhouette stable, no pleural effusion, pressor requirement stable. Plan: check coags, likely the blood was pooled in the left chest at the end of procedure. For now keep ETT until clear. Discharge Planning 05/03/2013 05/11/2013 Overview: Patient is from [place], [place]. No needs anticipated OPD visit Preop testing 05/01/2013 05/06/2013 Overview: Images from the original note were not included. [facility] Surgeon: Alfred Grove M.D. Informed Consent Completed: No STS Score: 0.215% for CABG CAD: Yes - CAD on Problem List: Yes Is intended procedure a CABG: Yes - is a beta monet ordered? Yes H & P completed: Yes PA/LAT: Completed CT: N/A MRI: N/A LE US: N/A Cath: Yes - reviewed: Yes Echo: Completed EKG: Completed EF %: 59 PI's: Completed Carotid: Completed Mapping: N/A Dental: N/A PFT's: Complete Basename 05/03/13 0553 05/02/13 0835 05/01/13 1738 05/01/13 0154 WBC 8.99 8.58 -- 10.54 HB 15.3 16.0 -- 14.4 HCT 43.8 46.3 -- 42.4 PLT 343 343 -- 315 NA 135 136 -- 139 K 4.2 4.5 4.7 -- CHLOR 97* 96* -- 101 CO2 24 27 -- 24 CREAT 0.98 1.03 -- 0.89 BUN 20 15 -- 16 GLUC 95 87 -- 84 P -- -- -- -- TPROT -- -- -- 6.7 ALB -- -- -- 4.1 MG 2.0 2.2 -- 2.1 CA 10.0 10.1 -- 9.3 ALKPHOS -- -- -- 54 TBILI -- -- -- 0.4 AST -- -- -- 25 ALT -- -- -- 38 CRP -- -- -- -- ESR -- -- -- -- PT INR (no units) Date Value 05/03/2013 1.0 UA: neg HCG:N/A ABO/ABO Confirmed: A+/neg Blood ordered: TSH SA Swab: Yes - results: Neg/neg Last Dose of Anticoagulation: Aspirin 81 Op Note: N/A Pacemaker Check: N/A Consults: None DM: No, hgba1c 5.9 Cardiac Surgical prep: Yes SIGNATURE: Carole Flores CNP CHECKED BY: YANN DATE of SERVICE: 05/01/2013 TIME of SERVICE: 9:30 AM Updated: 05/03/2013: Darcie Dallas CNP Hypertension 05/01/2013 05/06/2013 Overview: Home medication: lisinopril 10 mg was on levo this AM, vasodilated; SBP currently 90s-100s; start beta monet when BP allows Positive cardiac stress test 05/01/2013 documented as of this encounter (statuses as of 07/18/2022) [facility] History of Past illness Narrative* Problem Noted Date Resolved Date SUMMARY 05/06/2013 06/22/2016 Overview: Presentation / Principal Diagnosis: CAD. Patient with posotive family h/o early Cad/coronary events, known with HLP now with positive stress test. Cath: multivessel CAD Preop: LVEF:nl RVF: nl Surgery: CABG Date:05/04/2013 Major Comorbidities:HLP Airway: easy OR Course: hypotension . Post CPB: LVEF: nl RVF: nl Issues to communicate at signout: MS air leak. PLan to clamp and check CXR. As long as no ptx or subq develops will d/c MS and keep pleurals and transfer to [facility]. A/P 38 y/o male with history of CAD 1. Coronary Artery Disease - s/p CABG x4. On ASA, BB and statin. 2. Post-operative pain - Improved this AM. Noting to be better with removal of pleural tubes. 3. Fluid overload - Diuresis with lasix 20 mg IV BID to continue. Transition to oral regimen this afternoon. Monitor I and O. 4. Hyperlipidemia - LDL pre-op on simvistatin 40 mg not at goal < 70. Continue lipitor 80 mg qhs. F/u with prev cardiolog 5. Discharge planning - Resides in [place], [place]. . No needs anticipated. Stress hyperglycemia 05/06/2013 05/08/2013 Overview: NO prior history of DM. D/c accu-check and SSI coverage Fluid overload 05/06/2013 05/11/2013 Overview: No prior history of diuretic use. Volume overloaded from OHS ? - diuresing with lasix - transition to 20 mg IV Monitor I and O. Hyperkalemia 05/05/2013 05/07/2013 Overview: one episode overnight, K+max 6.2; received a K+ cocktail. Normal kidney function. Was hyperglycemic at that time. Last potassium 4.2. Monitor closely. Hypotension, unspecified 05/04/2013 013 Overview: History: postop Assessment: low SVR Plan: volume, wean levo. Bleeding 05/04/2013 05/05/2013 Overview: History: Dry in OR. No products needed. Dumped 200 cc out of lt pleural. (total 380 cc in 35 minutes) Assessment: Stable hemodynamics, mediastinal silhouette stable, no pleural effusion, pressor requirement stable. Plan: check coags, likely the blood was pooled in the left chest at the end of procedure. For now keep ETT until clear. Discharge Planning 05/03/2013 05/11/2013 Overview: Patient is from [place], [place]. No needs anticipated OPD visit Preop testing 05/01/2013 05/06/2013 Overview: Images from the original note were not included. [facility] Surgeon: Alfred Grove M.D. Informed Consent Completed: No STS Score: 0.215% for CABG CAD: Yes - CAD on Problem List: Yes Is intended procedure a CABG: Yes - is a beta monet ordered? Yes H & P completed: Yes PA/LAT: Completed CT: N/A MRI: N/A LE US: N/A Cath: Yes - reviewed: Yes Echo: Completed EKG: Completed EF %: 59 PI's: Completed Carotid: Completed Mapping: N/A Dental: N/A PFT's: Complete Basename 05/03/13 0553 05/02/13 0835 05/01/13 1738 05/01/13 0154 WBC 8.99 8.58 -- 10.54 HB 15.3 16.0 -- 14.4 HCT 43.8 46.3 -- 42.4 PLT 343 343 -- 315 NA 135 136 -- 139 K 4.2 4.5 4.7 -- CHLOR 97* 96* -- 101 CO2 24 27 -- 24 CREAT 0.98 1.03 -- 0.89 BUN 20 15 -- 16 GLUC 95 87 -- 84 P -- -- -- -- TPROT -- -- -- 6.7 ALB -- -- -- 4.1 MG 2.0 2.2 -- 2.1 CA 10.0 10.1 -- 9.3 ALKPHOS -- -- -- 54 TBILI -- -- -- 0.4 AST -- -- -- 25 ALT -- -- -- 38 CRP -- -- -- -- ESR -- -- -- -- PT INR (no units) Date Value 05/03/2013 1.0 UA: neg HCG:N/A ABO/ABO Confirmed: A+/neg Blood ordered: TSH SA Swab: Yes - results: Neg/neg Last Dose of Anticoagulation: Aspirin 81 Op Note: N/A Pacemaker Check: N/A Consults: None DM: No, hgba1c 5.9 Cardiac Surgical prep: Yes SIGNATURE: Carole Flores CNP CHECKED BY: YANN DATE of SERVICE: 05/01/2013 TIME of SERVICE: 9:30 AM Updated: 05/03/2013: Darcie Dallas CNP Hypertension 05/01/2013 05/06/2013 Overview: Home medication: lisinopril 10 mg was on levo this AM, vasodilated; SBP currently 90s-100s; start beta monet when BP allows Positive cardiac stress test 05/01/2013 documented as of this encounter (statuses as of 08/08/2022) [facility]08[facility] History of Past illness Narrative* Problem Noted Date Resolved Date SUMMARY 05/06/2013 06/22/2016 Overview: Presentation / Principal Diagnosis: CAD. Patient with posotive family h/o early Cad/coronary events, known with HLP now with positive stress test. Cath: multivessel CAD Preop: LVEF:nl RVF: nl Surgery: CABG Date:05/04/2013 Major Comorbidities:HLP Airway: easy OR Course: hypotension . Post CPB: LVEF: nl RVF: nl Issues to communicate at signout: MS air leak. PLan to clamp and check CXR. As long as no ptx or subq develops will d/c MS and keep pleurals and transfer to [facility]. A/P 38 y/o male with history of CAD 1. Coronary Artery Disease - s/p CABG x4. On ASA, BB and statin. 2. Post-operative pain - Improved this AM. Noting to be better with removal of pleural tubes. 3. Fluid overload - Diuresis with lasix 20 mg IV BID to continue. Transition to oral regimen this afternoon. Monitor I and O. 4. Hyperlipidemia - LDL pre-op on simvistatin 40 mg not at goal < 70. Continue lipitor 80 mg qhs. F/u with prev cardiolog 5. Discharge planning - Resides in [place], [place]. . No needs anticipated. Stress hyperglycemia 05/06/2013 05/08/2013 Overview: NO prior history of DM. D/c accu-check and SSI coverage Fluid overload 05/06/2013 05/11/2013 Overview: No prior history of diuretic use. Volume overloaded from OHS ? - diuresing with lasix - transition to 20 mg IV Monitor I and O. Hyperkalemia 05/05/2013 05/07/2013 Overview: one episode overnight, K+max 6.2; received a K+ cocktail. Normal kidney function. Was hyperglycemic at that time. Last potassium 4.2. Monitor closely. Hypotension, unspecified 05/04/2013 013 Overview: History: postop Assessment: low SVR Plan: volume, wean levo. Bleeding 05/04/2013 05/05/2013 Overview: History: Dry in OR. No products needed. Dumped 200 cc out of lt pleural. (total 380 cc in 35 minutes) Assessment: Stable hemodynamics, mediastinal silhouette stable, no pleural effusion, pressor requirement stable. Plan: check coags, likely the blood was pooled in the left chest at the end of procedure. For now keep ETT until clear. Discharge Planning 05/03/2013 05/11/2013 Overview: Patient is from [place], [place]. No needs anticipated OPD visit Preop testing 05/01/2013 05/06/2013 Overview: Images from the original note were not included. [facility] Surgeon: Alfred Grove M.D. Informed Consent Completed: No STS Score: 0.215% for CABG CAD: Yes - CAD on Problem List: Yes Is intended procedure a CABG: Yes - is a beta monet ordered? Yes H & P completed: Yes PA/LAT: Completed CT: N/A MRI: N/A LE US: N/A Cath: Yes - reviewed: Yes Echo: Completed EKG: Completed EF %: 59 PI's: Completed Carotid: Completed Mapping: N/A Dental: N/A PFT's: Complete Basename 05/03/13 0553 05/02/13 0835 05/01/13 1738 05/01/13 0154 WBC 8.99 8.58 -- 10.54 HB 15.3 16.0 -- 14.4 HCT 43.8 46.3 -- 42.4 PLT 343 343 -- 315 NA 135 136 -- 139 K 4.2 4.5 4.7 -- CHLOR 97* 96* -- 101 CO2 24 27 -- 24 CREAT 0.98 1.03 -- 0.89 BUN 20 15 -- 16 GLUC 95 87 -- 84 P -- -- -- -- TPROT -- -- -- 6.7 ALB -- -- -- 4.1 MG 2.0 2.2 -- 2.1 CA 10.0 10.1 -- 9.3 ALKPHOS -- -- -- 54 TBILI -- -- -- 0.4 AST -- -- -- 25 ALT -- -- -- 38 CRP -- -- -- -- ESR -- -- -- -- PT INR (no units) Date Value 05/03/2013 1.0 UA: neg HCG:N/A ABO/ABO Confirmed: A+/neg Blood ordered: TSH SA Swab: Yes - results: Neg/neg Last Dose of Anticoagulation: Aspirin 81 Op Note: N/A Pacemaker Check: N/A Consults: None DM: No, hgba1c 5.9 Cardiac Surgical prep: Yes SIGNATURE: Carole Flores CNP CHECKED BY: YANN DATE of SERVICE: 05/01/2013 TIME of SERVICE: 9:30 AM Updated: 05/03/2013: Darcie Dallas CNP Hypertension 05/01/2013 05/06/2013 Overview: Home medication: lisinopril 10 mg was on levo this AM, vasodilated; SBP currently 90s-100s; start beta monet when BP allows Positive cardiac stress test 05/01/2013 documented as of this encounter (statuses as of 01/29/2023) [facility] History of Past illness Narrative* Problem Noted Date Diagnosed Date Resolved Date SUMMARY 05/06/2013 06/22/2016 Overview: Presentation / Principal Diagnosis: CAD. Patient with posotive family h/o early Cad/coronary events, known with HLP now with positive stress test. Cath: multivessel CAD Preop: LVEF:nl RVF: nl Surgery: CABG Date:05/04/2013 Major Comorbidities:HLP Airway: easy OR Course: hypotension . Post CPB: LVEF: nl RVF: nl Issues to communicate at signout: MS air leak. PLan to clamp and check CXR. As long as no ptx or subq develops will d/c MS and keep pleurals and transfer to [facility]. A/P 38 y/o male with history of CAD 1. Coronary Artery Disease - s/p CABG x4. On ASA, BB and statin. 2. Post-operative pain - Improved this AM. Noting to be better with removal of pleural tubes. 3. Fluid overload - Diuresis with lasix 20 mg IV BID to continue. Transition to oral regimen this afternoon. Monitor I and O. 4. Hyperlipidemia - LDL pre-op on simvistatin 40 mg not at goal < 70. Continue lipitor 80 mg qhs. F/u with prev cardiolog 5. Discharge planning - Resides in [place], [place]. . No needs anticipated. Stress hyperglycemia 05/06/2013 013 Overview: NO prior history of DM. D/c accu-check and SSI coverage Fluid overload 05/06/2013 05/11/2013 Overview: No prior history of diuretic use. Volume overloaded from OHS ? - diuresing with lasix - transition to 20 mg IV Monitor I and O. Hyperkalemia 05/05/2013 05/07/2013 Overview: one episode overnight, K+max 6.2; received a K+ cocktail. Normal kidney function. Was hyperglycemic at that time. Last potassium 4.2. Monitor closely. Hypotension, unspecified 05/04/2013 Overview: History: postop Assessment: low SVR Plan: volume, wean levo. Bleeding 05/04/2013 05/05/2013 Overview: History: Dry in OR. No products needed. Dumped 200 cc out of lt pleural. (total 380 cc in 35 minutes) Assessment: Stable hemodynamics, mediastinal silhouette stable, no pleural effusion, pressor requirement stable. Plan: check coags, likely the blood was pooled in the left chest at the end of procedure. For now keep ETT until clear. Discharge Planning 05/03/2013 3 Overview: Patient is from [place], [place]. No needs anticipated OPD visit Preop testing 05/01/2013 05/06/2013 Overview: Images from the original note were not included. [facility] Surgeon: Alfred Grove M.D. Informed Consent Completed: No STS Score: 0.215% for CABG CAD: Yes - CAD on Problem List: Yes Is intended procedure a CABG: Yes - is a beta monet ordered? Yes H & P completed: Yes PA/LAT: Completed CT: N/A MRI: N/A LE US: N/A Cath: Yes - reviewed: Yes Echo: Completed EKG: Completed EF %: 59 PI's: Completed Carotid: Completed Mapping: N/A Dental: N/A PFT's: Complete Basename 05/03/13 0553 05/02/13 0835 05/01/13 1738 05/01/13 0154 WBC 8.99 8.58 -- 10.54 HB 15.3 16.0 -- 14.4 HCT 43.8 46.3 -- 42.4 PLT 343 343 -- 315 NA 135 136 -- 139 K 4.2 4.5 4.7 -- CHLOR 97* 96* -- 101 CO2 24 27 -- 24 CREAT 0.98 1.03 -- 0.89 BUN 20 15 -- 16 GLUC 95 87 -- 84 P -- -- -- -- TPROT -- -- -- 6.7 ALB -- -- -- 4.1 MG 2.0 2.2 -- 2.1 CA 10.0 10.1 -- 9.3 ALKPHOS -- -- -- 54 TBILI -- -- -- 0.4 AST -- -- -- 25 ALT -- -- -- 38 CRP -- -- -- -- ESR -- -- -- -- PT INR (no units) Date Value 05/03/2013 1.0 UA: neg HCG:N/A ABO/ABO Confirmed: A+/neg Blood ordered: TSH SA Swab: Yes - results: Neg/neg Last Dose of Anticoagulation: Aspirin 81 Op Note: N/A Pacemaker Check: N/A Consults: None DM: No, hgba1c 5.9 Cardiac Surgical prep: Yes SIGNATURE: Carole Flores CNP CHECKED BY: YANN DATE of SERVICE: 05/01/2013 TIME of SERVICE: 9:30 AM Updated: 05/03/2013: Darcie Dallas CNP Hypertension 05/01/2013 05/06/2013 Overview: Home medication: lisinopril 10 mg was on levo this AM, vasodilated; SBP currently 90s-100s; start beta monet when BP allows Positive cardiac stress test 05/01/2013 05/04/2013 documented as of this encounter (statuses as of 04/25/2023) [facility] History of Past illness Narrative* Problem Noted Date Diagnosed Date Resolved Date SUMMARY 05/06/2013 06/22/2016 Overview: Presentation / Principal Diagnosis: CAD. Patient with posotive family h/o early Cad/coronary events, known with HLP now with positive stress test. Cath: multivessel CAD Preop: LVEF:nl RVF: nl Surgery: CABG Date:05/04/2013 Major Comorbidities:HLP Airway: easy OR Course: hypotension . Post CPB: LVEF: nl RVF: nl Issues to communicate at signout: MS air leak. PLan to clamp and check CXR. As long as no ptx or subq develops will d/c MS and keep pleurals and transfer to [facility]. A/P 38 y/o male with history of CAD 1. Coronary Artery Disease - s/p CABG x4. On ASA, BB and statin. 2. Post-operative pain - Improved this AM. Noting to be better with removal of pleural tubes. 3. Fluid overload - Diuresis with lasix 20 mg IV BID to continue. Transition to oral regimen this afternoon. Monitor I and O. 4. Hyperlipidemia - LDL pre-op on simvistatin 40 mg not at goal < 70. Continue lipitor 80 mg qhs. F/u with prev cardiolog 5. Discharge planning - Resides in [place], [place]. . No needs anticipated. Stress hyperglycemia 05/06/2013 013 Overview: NO prior history of DM. D/c accu-check and SSI coverage Fluid overload 05/06/2013 05/11/2013 Overview: No prior history of diuretic use. Volume overloaded from OHS ? - diuresing with lasix - transition to 20 mg IV Monitor I and O. Hyperkalemia 05/05/2013 05/07/2013 Overview: one episode overnight, K+max 6.2; received a K+ cocktail. Normal kidney function. Was hyperglycemic at that time. Last potassium 4.2. Monitor closely. Hypotension, unspecified 05/04/2013 Overview: History: postop Assessment: low SVR Plan: volume, wean levo. Bleeding 05/04/2013 05/05/2013 Overview: History: Dry in OR. No products needed. Dumped 200 cc out of lt pleural. (total 380 cc in 35 minutes) Assessment: Stable hemodynamics, mediastinal silhouette stable, no pleural effusion, pressor requirement stable. Plan: check coags, likely the blood was pooled in the left chest at the end of procedure. For now keep ETT until clear. Discharge Planning 05/03/2013 3 Overview: Patient is from [place], [place]. No needs anticipated OPD visit Preop testing 05/01/2013 05/06/2013 Overview: Images from the original note were not included. [facility] Surgeon: Alfred Grove M.D. Informed Consent Completed: No STS Score: 0.215% for CABG CAD: Yes - CAD on Problem List: Yes Is intended procedure a CABG: Yes - is a beta monet ordered? Yes H & P completed: Yes PA/LAT: Completed CT: N/A MRI: N/A LE US: N/A Cath: Yes - reviewed: Yes Echo: Completed EKG: Completed EF %: 59 PI's: Completed Carotid: Completed Mapping: N/A Dental: N/A PFT's: Complete Basename 05/03/13 0553 05/02/13 0835 05/01/13 1738 05/01/13 0154 WBC 8.99 8.58 -- 10.54 HB 15.3 16.0 -- 14.4 HCT 43.8 46.3 -- 42.4 PLT 343 343 -- 315 NA 135 136 -- 139 K 4.2 4.5 4.7 -- CHLOR 97* 96* -- 101 CO2 24 27 -- 24 CREAT 0.98 1.03 -- 0.89 BUN 20 15 -- 16 GLUC 95 87 -- 84 P -- -- -- -- TPROT -- -- -- 6.7 ALB -- -- -- 4.1 MG 2.0 2.2 -- 2.1 CA 10.0 10.1 -- 9.3 ALKPHOS -- -- -- 54 TBILI -- -- -- 0.4 AST -- -- -- 25 ALT -- -- -- 38 CRP -- -- -- -- ESR -- -- -- -- PT INR (no units) Date Value 05/03/2013 1.0 UA: neg HCG:N/A ABO/ABO Confirmed: A+/neg Blood ordered: TSH SA Swab: Yes - results: Neg/neg Last Dose of Anticoagulation: Aspirin 81 Op Note: N/A Pacemaker Check: N/A Consults: None DM: No, hgba1c 5.9 Cardiac Surgical prep: Yes SIGNATURE: Carole Flores CNP CHECKED BY: YANN DATE of SERVICE: 05/01/2013 TIME of SERVICE: 9:30 AM Updated: 05/03/2013: Darcie Dallas CNP Hypertension 05/01/2013 05/06/2013 Overview: Home medication: lisinopril 10 mg was on levo this AM, vasodilated; SBP currently 90s-100s; start beta monet when BP allows Positive cardiac stress test 05/01/2013 05/04/2013 documented as of this encounter (statuses as of 07/26/2023) [facility] History of Past illness Narrative* Problem Noted Date Diagnosed Date Resolved Date SUMMARY 05/06/2013 06/22/2016 Overview: Presentation / Principal Diagnosis: CAD. Patient with posotive family h/o early Cad/coronary events, known with HLP now with positive stress test. Cath: multivessel CAD Preop: LVEF:nl RVF: nl Surgery: CABG Date:05/04/2013 Major Comorbidities:HLP Airway: easy OR Course: hypotension . Post CPB: LVEF: nl RVF: nl Issues to communicate at signout: MS air leak. PLan to clamp and check CXR. As long as no ptx or subq develops will d/c MS and keep pleurals and transfer to [facility]. A/P 38 y/o male with history of CAD 1. Coronary Artery Disease - s/p CABG x4. On ASA, BB and statin. 2. Post-operative pain - Improved this AM. Noting to be better with removal of pleural tubes. 3. Fluid overload - Diuresis with lasix 20 mg IV BID to continue. Transition to oral regimen this afternoon. Monitor I and O. 4. Hyperlipidemia - LDL pre-op on simvistatin 40 mg not at goal < 70. Continue lipitor 80 mg qhs. F/u with prev cardiolog 5. Discharge planning - Resides in [place]. . No needs anticipated. Stress hyperglycemia 05/06/2013 013 Overview: NO prior history of DM. D/c accu-check and SSI coverage Fluid overload 05/06/2013 05/11/2013 Overview: No prior history of diuretic use. Volume overloaded from OHS ? - diuresing with lasix - transition to 20 mg IV Monitor I and O. Hyperkalemia 05/05/2013 05/07/2013 Overview: one episode overnight, K+max 6.2; received a K+ cocktail. Normal kidney function. Was hyperglycemic at that time. Last potassium 4.2. Monitor closely. Hypotension, unspecified 05/04/2013 Overview: History: postop Assessment: low SVR Plan: volume, wean levo. Bleeding 05/04/2013 05/05/2013 Overview: History: Dry in OR. No products needed. Dumped 200 cc out of lt pleural. (total 380 cc in 35 minutes) Assessment: Stable hemodynamics, mediastinal silhouette stable, no pleural effusion, pressor requirement stable. Plan: check coags, likely the blood was pooled in the left chest at the end of procedure. For now keep ETT until clear. Discharge Planning 05/03/2013 3 Overview: Patient is from [place], [place]. No needs anticipated OPD visit Preop testing 05/01/2013 05/06/2013 Overview: Images from the original note were not included. [facility] Surgeon: Alfred Grove M.D. Informed Consent Completed: No STS Score: 0.215% for CABG CAD: Yes - CAD on Problem List: Yes Is intended procedure a CABG: Yes - is a beta monet ordered? Yes H & P completed: Yes PA/LAT: Completed CT: N/A MRI: N/A LE US: N/A Cath: Yes - reviewed: Yes Echo: Completed EKG: Completed EF %: 59 PI's: Completed Carotid: Completed Mapping: N/A Dental: N/A PFT's: Complete Basename 05/03/13 0553 05/02/13 0835 05/01/13 1738 05/01/13 0154 WBC 8.99 8.58 -- 10.54 HB 15.3 16.0 -- 14.4 HCT 43.8 46.3 -- 42.4 PLT 343 343 -- 315 NA 135 136 -- 139 K 4.2 4.5 4.7 -- CHLOR 97* 96* -- 101 CO2 24 27 -- 24 CREAT 0.98 1.03 -- 0.89 BUN 20 15 -- 16 GLUC 95 87 -- 84 P -- -- -- -- TPROT -- -- -- 6.7 ALB -- -- -- 4.1 MG 2.0 2.2 -- 2.1 CA 10.0 10.1 -- 9.3 ALKPHOS -- -- -- 54 TBILI -- -- -- 0.4 AST -- -- -- 25 ALT -- -- -- 38 CRP -- -- -- -- ESR -- -- -- -- PT INR (no units) Date Value 05/03/2013 1.0 UA: neg HCG:N/A ABO/ABO Confirmed: A+/neg Blood ordered: TSH SA Swab: Yes - results: Neg/neg Last Dose of Anticoagulation: Aspirin 81 Op Note: N/A Pacemaker Check: N/A Consults: None DM: No, hgba1c 5.9 Cardiac Surgical prep: Yes SIGNATURE: Carole Flores CNP CHECKED BY: YANN DATE of SERVICE: 05/01/2013 TIME of SERVICE: 9:30 AM Updated: 05/03/2013: Darcie Dallas CNP Hypertension 05/01/2013 05/06/2013 Overview: Home medication: lisinopril 10 mg was on levo this AM, vasodilated; SBP currently 90s-100s; start beta monet when BP allows Positive cardiac stress test 05/01/2013 05/04/2013 documented as of this encounter (statuses as of 08/29/2023) [facility] Diagnosis Lipid disorder- Primary Unspecified disorder of lipoid metabolism documented in this encounter [facility] note* Diagnosis Lipid disorder- Primary Unspecified disorder of lipoid metabolism Mixed hyperlipidemia Familial hypercholesterolemia Pure hypercholesterolemia Coronary artery disease involving barrow coronary artery of barrow heart without angina pectoris S/P drug eluting coronary stent placement Postsurgical percutaneous transluminal coronary angioplasty status Hx of CABG Postsurgical aortocoronary bypass status Coronary angioplasty status Postsurgical percutaneous transluminal coronary angioplasty status Family history of premature CAD Family history of ischemic heart disease documented in this encounter [facility] note* Diagnosis Coronary artery disease involving barrow coronary artery of barrow heart without angina pectoris- Primary Hx of CABG Postsurgical aortocoronary bypass status S/P drug eluting coronary stent placement Postsurgical percutaneous transluminal coronary angioplasty status Lipid disorder Unspecified disorder of lipoid metabolism Familial hypercholesterolemia Pure hypercholesterolemia documented in this encounter [facility] Diagnosis Coronary artery disease involving barrow coronary artery of barrow heart without angina pectoris- Primary documented in this encounter [facility] for referral (narrative)* Outpatient Procedure (Routine) - Pending Review Specialty Diagnoses / Procedures Referred By Contac t Referred To Contact [facility] Diagnoses Lipid disorder Mixed hyperlipidemia Familial hypercholesterolemia Coronary artery disease involving barrow coronary artery of barrow heart without angina pectoris S/P drug eluting coronary stent placement Hx of CABG Coronary angioplasty status Family history of premature CAD Procedures ECG COMPLETE ECG ROUTINE ECG W/LEAST 12 [facility] W/I&R Gifty Washington DO [address] [address] [facility] [address] [place] [id number] Referral ID Status Reason Start Date Expiration Date Visits Requested Visits Authorized [id number] Pending Review Auto-Generat ed Referral 01/08/2022 01/08/2023 1 1 [facility] Summary Purpose Family History No Family History Records FoundNo Family History Records FoundNo Family History Records FoundNo Family History Records Found Advance Directives No Advanced Directives Records FoundDocuments on File Type Date Recorded 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 Advance Directive(s) 05/22/2016 10:49 AM Documents on File Type Date Recorded 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 Advance Directive(s) 05/22/2016 10:49 AM Reason for Referral Specialty Diagnoses / Procedures Referred By Aristides chadwick Referred To Contact Rena Gonzalez APRN.[employer] [address] [place] [address] Referral ID Status Reason Start Date Expiration Date V isits Requested Visits Authorized [id number] Pending Review 1 1 Additional Source Comments (unrecognized sect ion and content) No Status Records FoundNo Status Records FoundNo Status Records FoundNo Status Records Found INFORMATION SOURCE (unrecogn ized section and content) DATE CREATED AUTHOR AUTHOR'S ORGANIZ ATION 06/29/2020 [facility] DATE CREATED AUTHOR AUTHOR'S ORGANIZ ATION 07/01/2020 [facility] DATE CREATED AUTHOR AUTHOR'S ORGANIZ ATION 09/22/2023 [facility] Source Comments (unrecognize d section and content) In the event this informatio n is protected by the Federal Confidentiality of Alcohol and Drug Abuse Patient Records regulations: The Federal rules restrict any use of the information to criminally investigate or prosecute any alcohol or drug abuse patient.[facility] the event this information is protected by the Federal Confidentiality of Alcohol and Drug Abuse Patient Records regulations: The Federal rules restrict any use of the information to criminally investigate or prosecute any alcohol or drug abuse patient.[facility] the event this information is protected by the Federal Confidentiality of Alcohol and Drug Abuse Patient Records regulations: The Federal rules restrict any use of the information to criminally investigate or prosecute any alcohol or drug abuse patient.[facility] the event this information is protected by the Federal Confidentiality of Alcohol and Drug Abuse Patient Records regulations: The Federal rules restrict any use of the information to criminally investigate or prosecute any alcohol or drug abuse patient.[facility] the event this information is protected by the Federal Confidentiality of Alcohol and Drug Abuse Patient Records regulations: The Federal rules restrict any use of the information to criminally investigate or prosecute any alcohol or drug abuse patient.[facility] the event this information is protected by the Federal Confidentiality of Alcohol and Drug Abuse Patient Records regulations: The Federal rules restrict any use of the information to criminally investigate or prosecute any alcohol or drug abuse patient.[facility] the event this information is protected by the Federal Confidentiality of Alcohol and Drug Abuse Patient Records regulations: The Federal rules restrict any use of the information to criminally investigate or prosecute any alcohol or drug abuse patient.[facility] the event this information is protected by the Federal Confidentiality of Alcohol and Drug Abuse Patient Records regulations: The Federal rules restrict any use of the information to criminally investigate or prosecute any alcohol or drug abuse patient.[facility] the event this information is protected by the Federal Confidentiality of Alcohol and Drug Abuse Patient Records regulations: The Federal rules restrict any use of the information to criminally investigate or prosecute any alcohol or drug abuse patient.[facility] the event this information is protected by the Federal Confidentiality of Alcohol and Drug Abuse Patient Records regulations: The Federal rules restrict any use of the information to criminally investigate or prosecute any alcohol or drug abuse patient.[facility] Reason for Visit (unrecogniz ed section and content) Reason Comments Results Reason Comments Cardiology Follow Up no issues Reason Onset Date Comments Refill Request 04/05/2022 Reason Comments Returning Patient's Call Appointment Reason Comments Cardiology Follow Up No issues Reason Onset Date Comments Refill Request 01/28/2023 Reason Onset Date Comments Refill Request 04/24/2023 Reason Comments Insurance Authorization [facility] [place] Reason Comments Medication Authorization FOR RECORDS PERTAINING TO PATIENTS WHO ARE OR HAVE BEEN ENROLLED IN A CHEMICAL DEPENDENCY/SUBSTANCEABUSE PROGRAM, SOME INFORMATION MAY BE OMITTED. This clinical summary was aggregated from multiple sources. Caution should be exercised in using it in the provision of clinical care. This summary normalizes information from multiple sources, and as a consequence, information in this document may materially change the coding, format and clinical context of patient data. In addition, data may be omitted in some cases. CLINICAL DECISIONS SHOULD BE BASED ON THE PRIMARY CLINICAL RECORDS. [employer] provides no warranty or guarantee of the accuracy or completeness of information in this document.
[2023-12-05 12:09] LABS: Testosterone, Free 7.68 ng/dL (5.00-21.00); Testosterone, Total 226 ng/dL (264-916); Transferrin 289 mg/dL (177-329)
== END | disposition home or self-care (01) ==
LOC: LAB 15:07
PROVIDERS: Referring Provider Family Medicine; Visit Provider Family Medicine
DX: E29.1 Testicular hypofunction (principal)
CPT/HCPCS: 84146; 84402; 84403; 84443; 84466